=== PATIENT | female | born 1990 | race Caucasian/White ===

== ENCOUNTER 2020-02-23 09:49 | Emergency (ER) | payer MEDICARE, MEDICAID, SELFPAY ==
--- NOTE | ~2020-02-23 | XR_ITS ---
EXAMINATION: XR chest 2V DATE: 02/23/2020 10:50 INDICATION: Shortness of breath. Cough. TECHNIQUE: Frontal and lateral views of the chest were obtained. COMPARISON: Chest single view 11/25/2019, chest 2 views 10/10/2014 FINDINGS: The chest demonstrates clear lungs without pneumonia, pleural effusion, or pneumothorax. Th e heart size is normal. Again seen is a chronic 6 mm radiopaque foreign body in right posterior chest wall. IMPRESSION: 1. No acute cardiopulmonary disease. Reviewed, dictated and finalized at location A.
[2020-02-23 10:00] VITALS: BP 135/109; PULSE 83; RESP 18; TEMP 36.8; O2SAT 100
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
--- NOTE | 2020-02-23 10:13 | ECG_ITS ---
Measurements Intervals [place] Rate: 65 P: 39 SD: 132 QRS: 16 QRSD: 85 T: 13 QT: 423 QTc: 443 Interpretive Statements SINUS RHYTHM WITH SINUS ARRHYTHMIA BASELINE WANDER- III NORMAL ECG Electronically Signed On 02-23-2020 11:00:25 CDT by Deonte Gilman D.O.
[2020-02-23 10:29] LABS: Basophils Absolute Auto 0.1 K/mm3 (0.0-0.1); Basophils Percent Auto 0.5 % (0.2-1.2); Eosinophils Absolute Auto 0.1 K/mm3 (0-0.3); Eosinophils Percent Auto 0.7 % (0-4.4); Hemoglobin 13.8 g/dL (12.0-15.0); Immature Granulocyte Absolute 0.03 K/mm3 (0.00-0.031); Immature Granulocyte Percent A 0.3 % (0-0.5); Lymphocytes Absolute Auto 1.97 K/mm3 (0.9-3.2); Lymphocytes Percent Auto 21.6 % (18.3-44.2); Mean Corpuscular HGB Conc 33.7 g/dl (32-36); Mean Corpuscular Hemoglobin 29.8 pg (26-34); Mean Corpuscular Volume 88.6 fl (80-100); Mean Platelet Volume 10.5 fl (7.4-10.4); Monocytes Absolute Auto 0.5 K/mm3 (0.1-0.6); Monocytes Percent Auto 5.4 % (2.6-8.5); Neutrophils Absolute Auto 6.5 K/mm3 (1.3-6.7); Neutrophils Percent Auto 71.5 % (45.5-73.1); Platelet Count Result 298 k/mm3 (150-375); Red Blood Count 4.63 M/mm3 (4.2-5.4); Red Cell Distribution Width 15.9 % (11.5-14.5); White Blood Count 9.1 K/mm3 (4.5-10.0)
[2020-02-23 10:32] LABS: Add Urine Microscopic? YES; Appearance Urine Clear (Clear); Bacteria Urine Trace /hpf; Bilirubin Urine Negative (Negative); Blood Urine Negative (Negative); Color Urine Yellow (Yellow); Glucose Urine UA Negative (Negative); Ketones Urine 2+ mg/dL (Negative); Leukocyte Esterase Ur Negative LEU/UL (Negative); Mucus Urine Few /lpf; Nitrate Urine Negative (Negative); Protein Urine 1+ mg/dL (Negative); Specific Grav Ur 1.021 (1.001-1.035); Squamous Epithelial Cell Urine Moderate /hpf (Few); Urobilinogen Urine Negative mg/dL (<2.0)
[2020-02-23 10:39] LABS: Lithium 1.4 mmol/L (0.6-1.2)
[2020-02-23 10:39] LABS: Ethanol < 10 mg/dL (<10)
[2020-02-23 10:40] LABS: Alanine Aminotransferase 24 U/L (4-35); Albumin Level 4.7 g/dL (3.5-5.1); Alkaline Phosphatase 82 U/L (38-126); Aspartate Amino Transferase 45 U/L (14-36); Bilirubin,Total 0.9 mg/dL (0.2-1.3); Blood Urea Nitrogen 10 mg/dL (7-17); Carbon Dioxide 20 mmol/L (22-30); Chloride 105 mmol/L (98-107); Estimated CRCL calculation 90 ml/min; Estimated Glomerular Filt Rate > 60; Glucose 73 mg/dL (65-105); Potassium 3.1 mmol/L (3.4-5.0); Sodium 141 mmol/L (137-145)
[2020-02-23 10:45] LABS: Barbiturate Screen Urine Negative (Negative); Benzodiazepines Screen Urine Positive (Negative)
[2020-02-23 10:46] LABS: Cannabinoid Screen Urine Positive (Negative); Cocaine Screen Urine Positive (Negative); Methadone Screen Urine Negative (Negative); Opiate Screen Urine Negative (Negative); Phencyclidine Screen Urine Negative (Negative)
[2020-02-23 10:47] LABS: Amphetamine Screen Urine Positive (Negative)
[2020-02-23] MEDS: SODIUM CHLORIDE 0.9% IV 1,000 ML 999 ML IV CONT ×2 (11:07)
--- NOTE | 2020-02-23 12:45 | PC.NURSE ---
Awaiting crisis to evaluate. Pt sleeping. Sitter at bedside.
--- NOTE | 2020-02-23 13:06 | PC.NURSE ---
Crisis here to evaluate.
[2020-02-23] MEDS: POTASSIUM CHLORIDE 20 MEQ TABLET PO (13:31)
[2020-02-23 13:57] LABS: Lithium < 0.2 mmol/L (0.6-1.2)
[2020-02-23 14:11] VITALS: BP 101/67; PULSE 79; RESP 16; O2SAT 100
--- NOTE | 2020-02-23 14:24 | PC.NURSE ---
Chart faxed to [facility].
--- NOTE | 2020-02-23 14:28 | PC.NURSE ---
Chart faxed to the [place].
--- NOTE | 2020-02-23 14:33 | PC.NURSE ---
Chart faxed to [facility] in [place].
--- NOTE | 2020-02-23 15:47 | PC.NURSE ---
Spoke with the [facility], they will submit her info to the doctor.
--- NOTE | 2020-02-23 15:48 | PC.NURSE ---
[facility]untary form [facility].
== END 2020-02-23 17:32 ==
PROVIDERS: Emergency Provider General Practice
DX: R45.851 Suicidal ideations (principal); E87.6 Hypokalemia; R78.89 Finding of other specified substances, not normally found in blood; F15.10 Other stimulant abuse, uncomplicated; F14.10 Cocaine abuse, uncomplicated; F12.10 Cannabis abuse, uncomplicated; F41.9 Anxiety disorder, unspecified; E78.5 Hyperlipidemia, unspecified; F31.9 Bipolar disorder, unspecified
CPT/HCPCS: 36415; 71046; 80053; 80178; 80307; 81001; 81025; 84443; 85025; 87804; 93005; 96360; 99285; A9270; J7030

== ENCOUNTER 2020-11-24 12:43 | Outpatient (CLI) | payer MEDICARE, MEDICAID, SELFPAY ==
--- NOTE | 2020-11-24 15:00 | NEURO_ITS ---
IMPRESSION: # Complains of pain in hands. # Significant bilateral sensory Carpal Tunnel Syndrome. # No ulnar neuropathy. # Normal needle/EMG exam. Nerve Conduction Studies Anti Sensory Summary Table Stim Site NR Peak (ms) P-T Amp (?V) Site1 Site2 Delta-P (ms) Dist (cm) Cristian (m/s) Left Median Anti Sensory (2-3nd Digit) Wrist 6.4 12.7 Wrist 2-3nd Digit 6.4 14.0 22 Wrist 5.6 10.5 Wrist 2-3nd Digit 6.4 14.0 22 Right Median Anti Sensory (2-3nd Digit) Wrist 7.3 22.1 Wrist 2-3nd Digit 7.3 14.0 19 Wrist 7.6 42.9 Wrist 2-3nd Digit 7.3 14.0 19 Left Radial Anti Sensory (Base 1st Digit) Wrist 1.6 17.2 Wrist Base 1st Digit 1.6 0.0 Right Radial Anti Sensory (Base 1st Digit) Wrist 2.0 24.5 Wrist Base 1st Digit 2.0 0.0 Left Ulnar Anti Sensory (5th Digit) Wrist 2.3 67.8 Wrist 5th Digit 2.3 14.0 61 Right Ulnar Anti Sensory (5th Digit) Wrist 2.0 60.0 Wrist 5th Digit 2.0 14.0 70 Motor Summary Table Stim Site NR Onset (ms) O-P Amp (mV) Site1 Site2 Delta-0 (ms) Dist (cm) Cristian (m/s) Left Median Motor (Abd Poll Brev) Wrist 3.6 0.9 Elbow Wrist 4.4 26.0 59 Elbow 8.0 3.4 Right Median Motor (Abd Poll Brev) Wrist 2.7 4.2 Elbow Wrist 5.0 28.0 56 Elbow 7.7 3.6 Left Ulnar Motor (Abd Dig Minimi) Wrist 1.9 6.8 A Elbow Wrist 4.7 28.0 60 A Elbow 6.6 8.0 Right Ulnar Motor (Abd Dig Minimi) Wrist 1.6 3.9 A Elbow Wrist 4.7 26.0 55 A Elbow 6.3 4.8 F Wave Studies NR F-Lat (ms) L-R F-Lat (ms) Left Median (Mrkrs) (Abd Poll Brev) 32.34 1.05 Right Median (Mrkrs) (Abd Poll Brev) 33.39 1.05 Left Ulnar (Mrkrs) (Abd Dig Min) 24.34 1.05 Right Ulnar (Mrkrs) (Abd Dig Min) 25.39 1.05 EMG Side Muscle Nerve Root Ins Act Fibs Amp Dur Recrt Comment Right 1stDorInt Ulnar C8-T1 Nml Nml Nml Nml Nml Right Ext Indicis Radial (Post Int) C7-8 Nml Nml Nml Nml Nml Right Ext Digitorum Radial (Post Int) C7-8 Nml Nml Nml Nml Nml Right BrachioRad Radial C5-6 Nml Nml Nml Nml Nml Right PronatorTeres Median C6-7 Nml Nml Nml Nml Nml Right Abd Poll Brev Median C8-T1 Nml Nml Nml Nml Nml Left 1stDorInt Ulnar C8-T1 Nml Nml Nml Nml Nml Left Ext Indicis Radial (Post Int) C7-8 Nml Nml Nml Nml Nml Left Ext Digitorum Radial (Post Int) C7-8 Nml Nml Nml Nml Nml Left BrachioRad Radial C5-6 Nml Nml Nml Nml Nml Left PronatorTeres Median C6-7 Nml Nml Nml Nml Nml Left Abd Poll Brev Median C8-T1 Nml Nml Nml Nml Nml MTDD
== END 2020-11-24 12:44 | disposition home or self-care (01) ==
LOC: ANHNEURO 12:45
PROVIDERS: PCP Physician Assistant; Visit Provider Physician Assistant
DX: M67.839 Other specified disorders of synovium and tendon, unspecified wrist (principal); G56.03 Carpal tunnel syndrome, bilateral upper limbs
CPT/HCPCS: 95886; 95911

== ENCOUNTER 2021-01-28 12:55 | Emergency (ER) | payer MEDICARE, MEDICAID, SELFPAY ==
[2021-01-28 13:05] VITALS: BP 117/93; PULSE 60; RESP 22; TEMP 36.5; O2SAT 94
--- NOTE | 2021-01-28 13:34 | PC.NURSE ---
Pt restless, scratching at skin. Out in [place] frequently to talk on phone.
--- NOTE | 2021-01-28 13:35 | PC.NURSE ---
Pt found in cabinets in room. Has open packets of ky jelly out.
--- NOTE | 2021-01-28 14:07 | ED.GENADULT ---
HPI - General Adult General Chief complaint: Skin/Abscess/Foreign Body <Aleksey Heath PA-C - Last Filed: 01/28/21 14:12> Stated complaint: bumps all over/pain <Aleksey Heath PA-C - Last Filed: 01/28/21 14:12> Time Seen by Provider: 01/28/21 13:27 <Aleksey Heath PA-C - Last Filed: 01/28/21 14:12> Source: patient <Aleksey Heath PA-C - Last Filed: 01/28/21 14:12> Mode of arrival: ambulatory <Aleksey Heath PA-C - Last Filed: 01/28/21 14:12> Limitations: no limitations <Aleksey Heath PA-C - Last Filed: 01/28/21 14:12> History of Present Illness HPI narrative: Patient is a 30-year-old female who uses ice noting that she has a rash to her body patient notes that been there several days notes aching and irritation patient denies any fever chills nausea vomiting no other wounds or complaints patient is very anxious on arrival notes that she has been using methamphetamine <Aleksey Heath PA-C - Last Filed: 01/28/21 14:12> Related Data Home medications: Home Medications Medication Instructions Recorded Confirmed buprenorphine-naloxone film 02/23/20 bupropion HCl PO 02/23/20 fluoxetine mg 02/23/20 <Aleksey Heath PA-C - Last Filed: 01/28/21 14:12> Allergies/adverse reactions: Allergies Allergy/AdvReac Type Severity Reaction Status Date / Time risperidone Allergy Unknown Swelling Verified 01/28/21 13:11 of Lip/Tongue/Throat ANTIPSYCHOTICS Allergy Unknown Siezure Uncoded 02/23/20 10:08 <Aleksey Heath PA-C - Last Filed: 01/28/21 14:12> Review of Systems Review of Systems: All systems reviewed & are unremarkable except as noted in HPI and below <Aleksey Heath PA-C - Last Filed: 01/28/21 14:12> PMFSH Past Medical History Medical History: Medical History (Updated 01/28/21 @ 14:11 by Aleksey Heath PA-C) Anxiety Bipolar disorder Depression HLD (hyperlipidemia) <Aleksey Heath PA-C - Last Filed: 01/28/21 14:12> Surgical History Surgical History: Surgical History Hx of section <Aleksey Heath PA-C - Last Filed: 01/28/21 14:12> Social History Social History: Social History (Updated 01/28/21 @ 14:08 by Aleksey Heath PA-C) Smoking status: Smoker, status unknown Substance use type: amphetamines Gender identity (if verbalized by the patient): Female <Aleksey Heath PA-C - Last Filed: 01/28/21 14:12> Exam Narrative: Exam Narrative: GENERAL: Well-appearing, well-nourished, and in no acute distress. HEAD: Normocephalic, atraumatic. EYES: PERRLA and EOMI. ENT: Nares clear, no rhinorrhea or epistaxis. Mucous membranes moist. CHEST: Clear to auscultation. No respiratory distress. No wheezes rales or rhonchi HEART: Regular rate and rhythm. No murmur heard. Normal peripheral pulses. EXTREMITIES: Normal range of motion. No edema. SKIN: Warm, dry, folliculitis of the buttocks NEURO: No focal deficits. Alert and oriented x3. PSYCH: Patient acutely anxious <Aleksey Heath PA-C - Last Filed: 01/28/21 14:12> Course Course Emergency Course: Patient presented with folliculitis no distress will be discharged home with instructions for follow-up <Aleksey Heath PA-C - Last Filed: 01/28/21 14:12> Vital Signs Vital signs: Vital Signs Temperature 97.7 F 01/28/21 13:05 Pulse Rate 60 01/28/21 13:05 Respiratory Rate 22 H 01/28/21 13:05 Blood Pressure 117/93 H 01/28/21 13:05 Pulse Oximetry 94 01/28/21 13:05 Temperature 97.7 F 01/28/21 13:05 Pulse Rate 60 01/28/21 13:05 Respiratory Rate 22 H 01/28/21 13:05 Blood Pressure 117/93 H 01/28/21 13:05 Pulse Oximetry 94 01/28/21 13:05 <VANESSA Mondragon Last Filed: 01/28/21 14:12> Vital Signs Temperature 97.7 F 01/28/21 13:05 Pulse Rate 60 01/28/21 13:05 Respiratory Rate 22 H 01/28/21 13:05 Blood
--- NOTE | 2021-01-28 14:13 | PC.NURSE ---
Pt noted to be walking out of the department quickly. Pt talking to herself, rambling speech, unable to understand or redirect behavior. Mother had attempted to check in as a visitor, and wasn't allowed to visit as has a pending covid test.
== END 2021-01-28 14:26 | disposition home or self-care (01) ==
PROVIDERS: Emergency Provider General Practice; PCP Physician Assistant
DX: L73.9 Follicular disorder, unspecified (principal); E78.5 Hyperlipidemia, unspecified; F41.9 Anxiety disorder, unspecified; F31.9 Bipolar disorder, unspecified
CPT/HCPCS: 99283

== ENCOUNTER 2021-03-04 03:50 | Emergency (ER) | payer MEDICARE, MEDICAID, SELFPAY ==
[2021-03-04 03:55] VITALS: BP 119/78; PULSE 77; RESP 16; TEMP 36.6; O2SAT 100
[2021-03-04 04:31] LABS: Basophils Percent Auto 0.4 % (0.2-1.2); Eosinophils Percent Auto 0.5 % (0-4.4); Hematocrit 47.6 % (37.0-47.0); Hemoglobin 15.8 g/dL (12.0-15.0); Immature Granulocyte Absolute 0.03 K/mm3 (0.00-0.031); Immature Granulocyte Percent A 0.4 % (0-0.5); Mean Corpuscular HGB Conc 33.2 g/dl (32-36); Mean Corpuscular Hemoglobin 28.9 pg (26-34); Mean Platelet Volume 10.8 fl (7.4-10.4); Monocytes Absolute Auto 0.5 K/mm3 (0.1-0.6); Monocytes Percent Auto 6.3 % (2.6-8.5); Neutrophils Percent Auto 62.4 % (45.5-73.1); Platelet Count Result 240 k/mm3 (150-375); Red Blood Count 5.47 M/mm3 (4.2-5.4); Red Cell Distribution Width 14.6 % (11.5-14.5)
[2021-03-04 04:43] LABS: Add Urine Microscopic? YES; Appearance Urine Cloudy (Clear); Bacteria Urine Trace /hpf; Bilirubin Urine Negative (Negative); Blood Urine Negative (Negative); Color Urine Yellow (Yellow); Glucose Urine UA Negative (Negative); Ketones Urine Negative (Negative); Leukocyte Esterase Ur Negative LEU/UL (Negative); Nitrate Urine Negative (Negative); Protein Urine 1+ mg/dL (Negative); Specific Grav Ur 1.015 (1.001-1.035); Squamous Epithelial Cell Urine Many /hpf (Few); Urobilinogen Urine Negative mg/dL (<2.0); WBC Urine 0-3 /hpf
[2021-03-04 04:47] LABS: Alanine Aminotransferase 22 U/L (4-35); Albumin Level 5.1 g/dL (3.5-5.1); Alkaline Phosphatase 70 U/L (38-126); Anion Gap 11 mmol/L (8-16); Aspartate Amino Transferase 28 U/L (14-36); Bilirubin,Total 0.3 mg/dL (0.2-1.3); Blood Urea Nitrogen 12 mg/dL (7-17); Calcium 9.4 mg/dL (8.4-10.2); Carbon Dioxide 26 mmol/L (22-30); Chloride 105 mmol/L (98-107); Estimated CRCL calculation 82 ml/min; Estimated Glomerular Filt Rate > 60; Glucose 81 mg/dL (65-105); Potassium 3.7 mmol/L (3.4-5.0); Sodium 142 mmol/L (137-145)
[2021-03-04 04:49] LABS: Acetaminophen < 10 ug/mL (10-30); Ethanol < 10 mg/dL (<10); Salicylate < 1.0 mg/dL (2-20)
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
[2021-03-04 05:39] LABS: Barbiturate Screen Urine Negative (Negative); Benzodiazepines Screen Urine Negative (Negative); Cannabinoid Screen Urine Positive (Negative); Cocaine Screen Urine Positive (Negative); Methadone Screen Urine Negative (Negative); Opiate Screen Urine Negative (Negative); Phencyclidine Screen Urine Negative (Negative)
[2021-03-04 06:45] LABS: Amphetamine Screen Urine Positive (Negative)
--- NOTE | 2021-03-04 07:08 | PC.NURSE ---
report to Sal HARRELL
--- NOTE | 2021-03-04 08:40 | PC.NURSE ---
Pt. asked if they are still having suicidal thoughts and patient stated When did I ever say that? Pt. denies any suicidal or homicidal ideations at this time.
[2021-03-04 10:28] VITALS: BP 117/76; PULSE 73; RESP 14; O2SAT 100
--- NOTE | 2021-03-04 10:29 | PC.NURSE ---
Pt. in the room agitated, stating she will tricia the whole hospital that I will call 911 to go to a real [facility] Do you know where God is? I would like to speak with him
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
[2021-03-04 13:32] VITALS: BP 111/80; PULSE 62; RESP 12; O2SAT 98
--- NOTE | 2021-03-04 14:22 | PC.NURSE ---
Pt stated I am not taking that fucking packet upon discharge.
--- NOTE | 2021-03-04 14:45 | PC.NURSE ---
Pt. arguing with someone on the phone becoming agitated. Pt. advised to stop.
[2021-03-04 19:39] LABS: SARS-CoV-2 RNA PCR Negative
== END 2021-03-04 14:45 | disposition home or self-care (01) ==
PROVIDERS: Emergency Medicine; Emergency Provider General Practice; PCP Physician Assistant
DX: F15.10 Other stimulant abuse, uncomplicated (principal); F14.10 Cocaine abuse, uncomplicated; F12.10 Cannabis abuse, uncomplicated; F41.9 Anxiety disorder, unspecified; F31.9 Bipolar disorder, unspecified; E78.5 Hyperlipidemia, unspecified; F20.9 Schizophrenia, unspecified; Z20.822 Contact with and (suspected) exposure to COVID-19
CPT/HCPCS: 36415; 80053; 80307; 81001; 81025; 84443; 85025; 99284; C9803; U0003; U0005

== ENCOUNTER 2021-10-04 07:53 | Emergency (ER) | payer MEDICARE, MEDICAID, SELFPAY ==
[2021-10-04 07:54] VITALS: BP 151/107; PULSE 84; RESP 14; TEMP 37; O2SAT 100
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
[2021-10-04 09:09] VITALS: BP 148/99; PULSE 86; RESP 14; TEMP 36.5; O2SAT 100
== END 2021-10-04 09:10 | disposition home or self-care (01) ==
PROVIDERS: Emergency Provider Emergency Medicine; PCP Physician Assistant
DX: Z04.89 Encounter for examination and observation for other specified reasons (principal); F41.9 Anxiety disorder, unspecified; F31.9 Bipolar disorder, unspecified; E78.5 Hyperlipidemia, unspecified; Y04.2XXA Assault by strike against or bumped into by another person, initial encounter
CPT/HCPCS: 99281

== ENCOUNTER 2021-11-26 00:35 | Emergency (ER) | payer MEDICARE, MEDICAID, SELFPAY ==
--- NOTE | 2021-11-26 00:48 | ECG_ITS ---
Measurements Intervals [place] Rate: 99 P: 55 UT: 138 QRS: -15 QRSD: 86 T: 30 QT: 356 QTc: 458 Interpretive Statements SINUS RHYTHM POSSIBLE LEFT ATRIAL ENLARGEMENT BASELINE ARTIFACT- II, III, AVF BORDERLINE ECG Electronically Signed On 11-26-2021 6:31:33 E [employer] by Deonte Gilman D.O.
[2021-11-26 00:52] VITALS: BP 131/95; PULSE 90; RESP 20; O2SAT 97
[2021-11-26 01:07] LABS: Basophils Absolute Auto 0.1 K/mm3 (0.0-0.1); Basophils Percent Auto 0.6 % (0.2-1.2); Eosinophils Absolute Auto 0.1 K/mm3 (0-0.3); Eosinophils Percent Auto 0.6 % (0-4.4); Hemoglobin 14.3 g/dL (12.0-15.0); Immature Granulocyte Absolute 0.04 K/mm3 (0.00-0.031); Immature Granulocyte Percent A 0.4 % (0-0.5); Lymphocytes Absolute Auto 2.27 K/mm3 (0.9-3.2); Lymphocytes Percent Auto 20.9 % (18.3-44.2); Mean Corpuscular Hemoglobin 30.3 pg (26-34); Mean Platelet Volume 9.2 fl (7.4-10.4); Monocytes Absolute Auto 0.6 K/mm3 (0.1-0.6); Monocytes Percent Auto 5.4 % (2.6-8.5); Neutrophils Absolute Auto 7.8 K/mm3 (1.3-6.7); Neutrophils Percent Auto 72.1 % (45.5-73.1); Platelet Count Result 329 k/mm3 (150-375); Red Blood Count 4.72 M/mm3 (4.2-5.4); Red Cell Distribution Width 14.5 % (11.5-14.5); White Blood Count 10.9 K/mm3 (4.5-10.0)
[2021-11-26 01:23] LABS: Acetaminophen < 10 ug/mL (10-30); Ethanol < 10 mg/dL (<10); Salicylate < 1.0 mg/dL (2-20)
[2021-11-26 01:24] LABS: Alanine Aminotransferase 28 U/L (4-35); Albumin Level 5.1 g/dL (3.5-5.1); Alkaline Phosphatase 79 U/L (38-126); Anion Gap 13 mmol/L (8-16); Aspartate Amino Transferase 31 U/L (14-36); Bilirubin,Total 0.6 mg/dL (0.2-1.3); Blood Urea Nitrogen 16 mg/dL (7-17); Calcium 9.8 mg/dL (8.4-10.2); Carbon Dioxide 20 mmol/L (22-30); Chloride 105 mmol/L (98-107); Estimated Glomerular Filt Rate > 60; Glucose 98 mg/dL (65-110); Potassium 3.5 mmol/L (3.4-5.0); Sodium 138 mmol/L (137-145)
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
[2021-11-26 01:49] LABS: SARS-CoV-2 RNA PCR Negative
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
[2021-11-26] MEDS: HALOPERIDOL LACTATE 5 MG/ML VIAL IM (02:40)
[2021-11-26] MEDS: diphenhydrAMINE HCl INJ 50 MG/ML VIAL IM (02:40)
[2021-11-26] MEDS: LORazepam INJ (*CRX) 2 MG/ML VIAL IM ×2 (02:41→03:24)
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
[2021-11-26 02:52] LABS: Add Urine Microscopic? YES; Appearance Urine Cloudy (Clear); Bacteria Urine Trace /hpf; Bilirubin Urine Negative (Negative); Blood Urine Negative (Negative); Color Urine Amber (Yellow); Glucose Urine UA Negative (Negative); Ketones Urine 1+ mg/dL (Negative); Leukocyte Esterase Ur 1+ LEU/UL (Negative); Mucus Urine Rare /lpf; Nitrate Urine Negative (Negative); Protein Urine 1+ mg/dL (Negative); RBC Urine 21-50 /hpf (0-2); Specific Grav Ur 1.029 (1.001-1.035); Squamous Epithelial Cell Urine Many /hpf (Few); Urobilinogen Urine Negative mg/dL (<2.0)
[2021-11-26 03:00] LABS: Barbiturate Screen Urine Negative (Negative); Benzodiazepines Screen Urine Negative (Negative)
[2021-11-26 03:02] LABS: Cannabinoid Screen Urine Positive (Negative); Cocaine Screen Urine Positive (Negative); Methadone Screen Urine Negative (Negative); Opiate Screen Urine Negative (Negative); Phencyclidine Screen Urine Negative (Negative)
--- NOTE | 2021-11-26 03:20 | PC.NURSE ---
pt attempting to finger paint with stool from bedside commode. pt continuing to say you're trying to kill me. get the fuck out of here. I'll have you on site .
[2021-11-26 03:26] LABS: Amphetamine Screen Urine Positive (Negative)
--- NOTE | 2021-11-26 03:47 | PC.NURSE ---
Pt resting on stretcher, lights dimmed. Sitter placed at bedside for elopement risk.
[2021-11-26 03:51] VITALS: PULSE 85; RESP 16; O2SAT 97
[2021-11-26 03:55] LABS: Pregnancy On Board Control Positive; Urine Pregnancy Test Negative
--- NOTE | 2021-11-26 07:30 | PC.NURSE ---
Ginger soto. Sleeping. Sitter at bedside.
--- NOTE | 2021-11-26 09:19 | PC.NURSE ---
Continues to sleep. Sitter at bedside.
--- NOTE | 2021-11-26 10:38 | PC.NURSE ---
Awake and cooperative with staff. Denies SI or HI at present.
[2021-11-26 10:44] VITALS: BP 106/71; PULSE 88; RESP 18; O2SAT 98
--- NOTE | 2021-11-26 14:15 | PC.NURSE ---
Crisis here to evaluate.
[2021-11-26 15:03] VITALS: TEMP 36.9
== END 2021-11-26 15:28 | disposition home or self-care (01) ==
PROVIDERS: Emergency Medicine; Emergency Provider General Practice; PCP Physician Assistant
DX: F15.10 Other stimulant abuse, uncomplicated (principal); F11.11 Opioid abuse, in remission; F12.10 Cannabis abuse, uncomplicated; F29 Unspecified psychosis not due to a substance or known physiological condition; Z20.822 Contact with and (suspected) exposure to COVID-19; F41.9 Anxiety disorder, unspecified; F31.9 Bipolar disorder, unspecified; E78.5 Hyperlipidemia, unspecified; R94.31 Abnormal electrocardiogram [ECG] [EKG]
CPT/HCPCS: 36415; 80053; 80307; 81001; 81025; 84443; 85025; 93005; 96372; 99284; C9803; J1200; J1630; J2060; U0003; U0005

== ENCOUNTER 2021-11-30 00:43 | Emergency (ER) | payer MEDICARE, MEDICAID, SELFPAY ==
[2021-11-30 00:50] VITALS: BP 113/94; PULSE 84; RESP 18; TEMP 36.6; O2SAT 98
--- NOTE | 2021-11-30 00:55 | PC.NURSE ---
This RN attempting to register other patients. Pt walking up to visitors and staff, interrupting, asks do you have a ventilator here? I bet I have COVID. I think I'm just going to call an ambulance and go to [place] or [facility]. The wait here is fucking ridiculous . Pt reminded that she has been in the department for approx 7 minutes. Pt asked to stop using profanity and to wear her mask, and to have a seat in the far area of the waiting room. Pt outside to smoke, returns and says obviously I'm too sick to smoke .
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
--- NOTE | 2021-11-30 01:22 | PC.NURSE ---
per pt request, facility was asked to call PD to escort pt out of ER
--- NOTE | 2021-11-30 01:25 | ED.GENADULT ---
HPI - General Adult General Chief complaint: Unspecified Stated complaint: diarrhea, fever, nausea, poss Time Seen by Provider: 11/30/21 01:09 History of Present Illness HPI narrative: Patient 31-year-old female who presents the emergency department with chief complaint of have COVID or the flu or I think I am . The patient is well-known to our emergency department and was seen here several days ago after she was having psychosis after using stimulants. Patient is uncooperative but denying suicidal or homicidal ideation Related Data Home Medications Medication Instructions Recorded Confirmed buprenorphine-naloxone film 02/23/20 bupropion HCl PO 02/23/20 fluoxetine mg 02/23/20 Allergies Allergy/AdvReac Type Severity Reaction Status Date / Time risperidone Allergy Unknown Swelling Verified 11/30/21 01:00 of Lip/Tongue/Throat ANTIPSYCHOTICS Allergy Unknown Siezure Uncoded 11/30/21 01:00 Review of Systems Review of Systems: A 10 system review of systems was completed on the patient and is negative except for what is stated in the HPI. Nursing and ancillary documentation was reviewed. PMFSH Past Medical History Medical History (Updated 11/30/21 @ 02:36 by Fred Berg MD) Anxiety Bipolar disorder Depression HLD (hyperlipidemia) Surgical History Surgical History Hx of section Social History Social History Smoking status: Smoker, status unknown Substance use type: marijuana, crack/cocaine and amphetamines Gender identity (if verbalized by the patient): Female Exam Narrative: GENERAL: Well-appearing, well-nourished, and in no acute distress. HEAD: Normocephalic, atraumatic. EYES: PERRLA and EOMI. ENT: Nares clear, no rhinorrhea or epistaxis. Mucous membranes moist. NECK: Supple. CHEST: Clear to auscultation. No respiratory distress. HEART: Regular rate and rhythm. No murmur heard. Normal peripheral pulses. ABDOMEN: Soft, nontender, nondistended, normal active bowel sounds. EXTREMITIES: Normal range of motion. No edema. SKIN: Warm, dry, no rash. NEURO: No focal deficits. Alert and oriented x3. PSYCH: Anxious fidgeting, not suicidal not homicidal Course Course Emergency Course: Patient is showing no signs of hemodynamic compromise patient chose to refuse medical screening exam Patient is fit for confinement Vital Signs Vital signs: Vital Signs Temperature 36.6 C 11/30/21 00:50 Pulse Rate 84 11/30/21 00:50 Respiratory Rate 18 11/30/21 00:50 Blood Pressure 113/94 H 11/30/21 00:50 Pulse Oximetry 98 11/30/21 00:50 Temperature 36.6 C 11/30/21 00:50 Pulse Rate 84 11/30/21 00:50 Respiratory Rate 18 11/30/21 00:50 Blood Pressure 113/94 H 11/30/21 00:50 Pulse Oximetry 98 11/30/21 00:50 Medical Decision Making Vital Signs Vital Signs: Vital Signs Temperature 36.6 C 11/30/21 00:50 Pulse Rate 84 11/30/21 00:50 Respiratory Rate 18 11/30/21 00:50 Blood Pressure 113/94 H 11/30/21 00:50 Pulse Oximetry 98 11/30/21 00:50 Temperature 36.6 C 11/30/21 00:50 Pulse Rate 84 11/30/21 00:50 Respiratory Rate 18 11/30/21 00:50 Blood Pressure 113/94 H 11/30/21 00:50 Pulse Oximetry 98 11/30/21 00:50 Discharge Plan Discharge Clinical Impression: Polysubstance abuse Patient Disposition: Left Against Medical Advice Condition: Stable Instructions: Polysubstance Abuse (ED) Additional Instructions: Patient is fit for confinement Denies homicidal or suicidal ideation Prescriptions: No Action Zyrtec 10 mg capsule 10 mg PO DAILY Qty: 10 RF: 0 methylprednisolone [Medrol (Chong)] 4 mg tablets,dose pack See Rx Instructions .ROUTE .COMPLEX Qty: 21 RF: 0 fluoxetine 10 mg tablet RF: 0 bupropion HCl 100 mg tablet PO RF: 0
== END 2021-11-30 01:49 | disposition left against medical advice (07) ==
LOC: ANHED 01:29
PROVIDERS: Emergency Provider Emergency Medicine
DX: F19.10 Other psychoactive substance abuse, uncomplicated (principal); F41.9 Anxiety disorder, unspecified; F31.9 Bipolar disorder, unspecified
CPT/HCPCS: 99281

== ENCOUNTER 2023-01-28 15:31 | Emergency (ER) | payer MEDICARE, MEDICAID, SELFPAY ==
[2023-01-28 15:45] VITALS: BP 121/71; PULSE 70; RESP 16; TEMP 37.3; O2SAT 99
--- NOTE | 2023-01-28 15:54 | ED.BACK ---
HPI - Back Pain/Injury General Chief Complaint: Back Pain/Injury Stated Complaint: back pain Time Seen by Provider: 01/28/23 15:55 Source: patient Mode of arrival: ambulatory Limitations: no limitations History of Present Illness HPI Narrative: 32-year-old female presents with complaint of right-sided low back pain that started last night. 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 Has taken 2 doses of 800 mg ibuprofen with no relief of pain. Patient is ambulatory with steady gait. No complaints of weakness or numbness to lower extremities. No loss of bowel or bladder. All systems reviewed and negative except as noted above. Related Data Home Medications Medication Instructions Recorded Confirmed bupropion HCl 100 mg tablet PO 02/23/20 fluoxetine 10 mg tablet mg 02/23/20 Allergies Allergy/AdvReac Type Severity Reaction Status Date / Time risperidone Allergy Unknown Swelling Verified 01/28/23 15:35 of Lip/Tongue/Throat ANTIPSYCHOTICS Allergy Unknown Siezure Uncoded 01/28/23 15:35 Review of Systems Review of Systems: CONSTITUTIONAL: Denies fever, chills, or sweats. EYES: Denies visual changes, redness, or discharge. ENT: Denies rhinorrhea, congestion, sore throat, or otalgia. CARDIOVASCULAR: Denies chest pain, palpitations, or edema. RESPIRATORY: Denies cough or dyspnea. GASTROINTESTINAL: Denies abdominal pain, nausea, vomiting, or diarrhea. GENITOURINARY: Denies dysuria or hematuria. SKIN: Denies rash or itching. MUSCULOSKELETAL: Reports right-sided low back pain. Denies joint pain, or myalgia. NEUROLOGIC: Denies headache, numbness, or weakness. PSYCHIATRIC: Denies anxiety or depression. All other systems reviewed are negative, except as documented in HPI. [facility] Past Medical History Medical History (Updated 01/28/23 @ 16:03 by Smita Irene NP) Anxiety Bipolar disorder Depression HLD (hyperlipidemia) Surgical History Surgical History Hx of section Social History Social History Smoking status: Smoker, status unknown Substance use type: marijuana, crack/cocaine and amphetamines Gender identity (if verbalized by the patient): Female Comments At time of signature, agree with nursing past medical, surgical, social and family history. There is no relevant family history pertinent to the presenting complaint. Exam Narrative: GENERAL: This is a well-nourished, well-developed patient, in no apparent distress. HEAD: normocephalic, atraumatic. EYES: PERRL. Sclera clear/white. Vision is grossly intact. EARS: External ears normal NOSE: External nose normal NECK: Neck supple, non-tender without lymphadenopathy, masses or thyromegaly. CARDIOVASCULAR: Regular rate and rhythm without murmurs, gallops, or rubs. RESPIRATORY: Clear to auscultation. Breath sounds equal bilaterally. No wheezes, rales, or rhonchi. SKIN: warm, Dry, intact with no suspicious lesions or rash, good texture and turgor. NEURO: awake, alert, and oriented to person, place and time. There were no obvious focal neurologic abnormalities. EXTREMITIES: No joint tenderness, effusion, or edema noted. No calf tenderness. Negative Homans sign bilaterally. BACK: no midline tenderness. No deformity. Tender to right side low back over SI joint aspect. Lower extremity strength bilaterally 5/5. negative straight leg raise. Course Course Level of Care: Express Care Visit Vital Signs Vital signs: Vital Signs Temperature 37.3 C 01/28/23 15:45 Pulse Rate 70 01/28/23 15:45 Respiratory Rate 16 01/28/23 15:45 Blood Pressure 121/71 01/28/23 15:45 Pulse Oximetry 99 01/28/23 15:45 Oxygen Delivery Room Air 01/28/23 15:45 Temperature 37.3 C 01/28/23 16:01 Pulse Rate 70 01/28/23 16:01 Respir
[2023-01-28 16:01] VITALS: BP 121/71; PULSE 70; RESP 16; TEMP 37.3; O2SAT 99
== END 2023-01-28 16:05 | disposition home or self-care (01) ==
PROVIDERS: Emergency Provider Nurse Practitioner Family
DX: S39.012A Strain of muscle, fascia and tendon of lower back, initial encounter (principal); F41.9 Anxiety disorder, unspecified; F32.A Depression, unspecified; E78.5 Hyperlipidemia, unspecified; X50.0XXA Overexertion from strenuous movement or load, initial encounter
CPT/HCPCS: 99213; G0463

== ENCOUNTER 2023-12-09 16:13 | Emergency (ER) | payer MEDICARE, MEDICAID, SELFPAY ==
[2023-12-09 16:16] VITALS: BP 104/74; PULSE 87; RESP 18; TEMP 36.8; O2SAT 99
[2023-12-09 16:53] LABS: Appearance Urine Clear (Clear); Bacteria Urine None Seen /hpf; Bilirubin Urine Negative (Negative); Blood Urine 3+ (Negative); Color Urine Yellow (Yellow); Glucose Urine UA Negative (Negative); Ketones Urine Negative (Negative); Leukocyte Esterase Ur Negative LEU/UL (Negative); Nitrate Urine Negative (Negative); Non Pathogenic Casts 0-2; Protein Urine Negative (Negative); RBC Urine 21-50 /hpf (0-2); Specific Grav Ur 1.018 (1.001-1.035); Squamous Epithelial Cell Urine None seen /hpf (Few); Urobilinogen Urine 0.2 mg/dL (<2.0); WBC Urine 0-5 /hpf
[2023-12-09 16:55] LABS: Basophils Percent Auto 0.4 % (0.2-1.2); Eosinophils Absolute Auto 0.1 K/mm3 (0-0.3); Eosinophils Percent Auto 1.6 % (0-4.4); Hematocrit 39.5 % (37.0-47.0); Hemoglobin 12.9 g/dL (12.0-15.0); Immature Granulocyte Absolute 0.01 K/mm3 (0.00-0.031); Immature Granulocyte Percent A 0.2 % (0-0.5); Lymphocytes Percent Auto 31.3 % (18.3-44.2); Mean Corpuscular HGB Conc 32.7 g/dl (32-36); Mean Corpuscular Hemoglobin 28.4 pg (26-34); Mean Corpuscular Volume 86.8 fl (80-100); Mean Platelet Volume 10.6 fl (7.4-10.4); Monocytes Absolute Auto 0.4 K/mm3 (0.1-0.6); Monocytes Percent Auto 7.8 % (2.6-8.5); Neutrophils Absolute Auto 2.6 K/mm3 (1.3-6.7); Neutrophils Percent Auto 58.7 % (45.5-73.1); Platelet Count Result 218 k/mm3 (150-375); Red Blood Count 4.55 M/mm3 (4.2-5.4); Red Cell Distribution Width 14.6 % (11.5-14.5); White Blood Count 4.5 K/mm3 (4.5-10.0)
[2023-12-09 17:04] LABS: Add Urine Microscopic? YES
[2023-12-09 17:09] LABS: Alanine Aminotransferase 17 U/L (6-35); Albumin Level 3.8 g/dL (3.5-5.1); Alkaline Phosphatase 53 U/L (38-126); Anion Gap 7 mmol/L (8-16); Aspartate Amino Transferase 22 U/L (14-36); Bilirubin,Total 0.3 mg/dL (0.2-1.3); Blood Urea Nitrogen 8 mg/dL (7-17); Calcium 8.8 mg/dL (8.4-10.2); Carbon Dioxide 21 mmol/L (22-30); Chloride 109 mmol/L (98-107); Estimated CRCL calculation 92 ml/min; Estimated Glomerular Filt Rate > 60; Glucose 95 mg/dL (65-110); Sodium 137 mmol/L (137-145)
[2023-12-09 17:12] VITALS: BP 92/65; PULSE 65; RESP 18; O2SAT 97
[2023-12-09] MEDS: KETOROLAC 30 MG/ML VIAL (*BKC) IM (17:30)
--- NOTE | 2023-12-09 18:41 | ED.ABDPAIN ---
HPI - Abdominal Pain General Chief Complaint: Abdominal Pain Stated Complaint: extreme cramps X2 days Time Seen by Provider: 12/09/23 16:27 History of Present Illness HPI narrative: Patient presenting with painful menstrual cramps and heavy bleeding, she is on her period, her bleeding has already lessened over the last few hours. No other complaints. Takes Tylenol and ibuprofen for the cramps. Related Data Allergies Allergy/AdvReac Type Severity Reaction Status Date / Time risperidone Allergy Unknown Swelling Verified 12/09/23 16:14 of Lip/Tongue/Throat ANTIPSYCHOTICS Allergy Unknown Siezure Uncoded 12/09/23 16:14 Review of Systems Review of Systems: CONST: No fever. HEENT: No sore throat C/V: No chest pain RESP: No cough GI: Cramps : vaginal bleeding. M/S: No joint pain. SKIN: No rash. NEURO: [No headache or focal numbness or weakness] PSYCH: [No depression] PMFSH Past Medical History Medical History (Updated 12/09/23 @ 17:25 by Sarah Duncan MD) Anxiety Bipolar disorder Depression HLD (hyperlipidemia) Surgical History Surgical History Hx of section Social History Social History Smoking status: Smoker, status unknown Substance use type: marijuana, crack/cocaine and amphetamines Gender identity (if verbalized by the patient): Female Exam Narrative: EXAMINATION OF ORGAN SYSTEMS/BODY AREAS: Constitutional: Vital signs per nursing GENERAL:[No acute distress, non-toxic appearing.] HEAD: Normal with no signs of head trauma. EYES: EOMI, conjunctiva normal ENT: Hearing grossly intact LUNGS: Nonlabored breathing. HEART: [Regular rate and rhythm] ABD: [Soft], [nontender to palpation] : Scant blood, no active hemorrhage EXT: Normal range of motion SKIN: [No rashes or lesions.] NEURO: [Alert and oriented x 3. No gross focal sensory or strength deficits.] PSYCH: Normal affect Course Vital Signs Vital signs: Vital Signs Temperature 98.2 F 12/09/23 16:16 Pulse Rate 87 12/09/23 16:16 Respiratory Rate 18 12/09/23 16:16 Blood Pressure 104/74 12/09/23 16:16 Pulse Oximetry 99 12/09/23 16:16 Oxygen Delivery Room Air 12/09/23 16:16 Temperature 98.2 F 12/09/23 16:16 Pulse Rate 65 12/09/23 17:12 Respiratory Rate 18 12/09/23 17:12 Blood Pressure 92/65 L 12/09/23 17:12 Pulse Oximetry 97 12/09/23 17:12 Oxygen Delivery Room Air 12/09/23 16:16 MDM - Abdominal Pain MDM Narrative Medical decision making narrative: 33-year-old menstrual cramps and bleeding, she is well-appearing on exam, abdomen soft nontender, I did check which is negative, urine which does not show UTI, and her hematocrit and hemoglobin were within acceptable limits. She is not having any active hemorrhage on exam and I do feel she is stable for discharge at this time, she is feeling better after a shot of Toradol, she is given follow-up to OBGYN and return precautions in person and on paper. Lab Data 12/09/23 16:51 12/09/23 16:51 Labs: Lab Results 12/09/23 12/09/23 Range/Units 16:44 16:51 WBC 4.5 (4.5-10.0) K/mm3 RBC 4.55 (4.2-5.4) M/mm3 Hgb 12.9 (12.0-15.0) g/dL Hct 39.5 (37.0-47.0) % MCV 86.8 (80-100) fl MCH 28.4 (26-34) pg MCHC 32.7 (32-36) g/dl RDW 14.6 H (11.5-14.5) % Plt Count 218 (150-375) k/mm3 MPV 10.6 H (7.4-10.4) fl Immature Gran % (Auto) 0.2 (0-0.5) % Neut % (Auto) 58.7 (45.5-73.1) % Lymph % (Auto) 31.3 (18.3-44.2) % [place] % (Auto) 7.8 (2.6-8.5) % Eos % (Auto) 1.6 (0-4.4) % Baso % (Auto) 0.4 (0.2-1.2) % Lymph # (Auto) 1.40 (0.9-3.2) K/mm3 [place] # (Auto) 0.4 (0.1-0.6) K/mm3 Eos # (Auto) 0.1 (0-0.3) K/mm3 Baso # (Auto) 0.0 (0.0-0.1) K/mm3 Abs Immat Gran (auto) 0.01 (0.00-0.031) K/mm3
== END 2023-12-09 17:36 | disposition home or self-care (01) ==
PROVIDERS: Emergency Provider Emergency Medicine
DX: N94.6 Dysmenorrhea, unspecified (principal); E78.5 Hyperlipidemia, unspecified
CPT/HCPCS: 36415; 80053; 81001; 81025; 85025; 96372; 99283; J1885

== ENCOUNTER 2024-01-10 17:50 | Emergency (ER) | payer MEDICARE, MEDICAID, SELFPAY ==
[2024-01-10 18:00] VITALS: BP 109/68; PULSE 80; RESP 18; TEMP 36.4; O2SAT 100
--- NOTE | 2024-01-10 18:04 | ED.SKABFB ---
HPI - Skin/Abscess/Foreign Bdy General Chief complaint: Skin/Abscess/Foreign Body Stated complaint: Rash Time Seen by Provider: 01/10/24 18:08 Source: patient Mode of arrival: ambulatory Limitations: no limitations History of Present Illness HPI narrative: Smita is a 33-year-old female patient presenting to clinic today with complaints of a rash on her arms, folds of axilla, to the anterior lower abdomen and on the sides of her abdomen. Rash is itchy. Reports that she has recently changed her fabric softener prior to developing this rash. History of eczema. Related Data Home Medications Medication Instructions Recorded Confirmed bupropion HCl 300 mg 24 hr tablet, mg PO 01/10/24 extended release hydroxyzine pamoate 50 mg capsule mg 01/10/24 norethindrone (contraceptive) 0.35 mg 01/10/24 mg tablet quetiapine 100 mg tablet mg 01/10/24 quetiapine 25 mg tablet mg 01/10/24 topiramate 50 mg tablet mg 01/10/24 trazodone 50 mg tablet mg 01/10/24 Allergies Allergy/AdvReac Type Severity Reaction Status Date / Time risperidone Allergy Unknown Swelling Verified 01/10/24 17:54 of Lip/Tongue/Throat ANTIPSYCHOTICS Allergy Unknown Siezure Uncoded 01/10/24 17:54 Review of Systems Review of Systems: Pertinent positives per HPI. Patient denies any fever, chills, headache, visual changes, dizziness, cough, runny nose, sore throat, shortness of breath, chest pain, palpitations, nausea, vomiting, diarrhea, constipation, abdominal pain, or any urinary issues. PMF Past Medical History Medical History Anxiety Bipolar disorder Depression HLD (hyperlipidemia) Surgical History Surgical History Hx of section Social History Social History Smoking status: Smoker, status unknown Substance use type: marijuana, crack/cocaine and amphetamines Gender identity (if verbalized by the patient): Female Comments At the time of my signature, I reviewed and agree with the nursing past medical, surgical, social, and family history. There is no relevant family history pertinent to the patient complaint. Exam Narrative: General: Well-developed, well nourished, in no apparent distress Head: Normocephalic, atraumatic. Cardio: Regular rate and rhythm, s1 and s2 normal, no murmur appreciated. Resp: Clear to auscultation bilaterally, no rhonchi, rales, wheezing or rubs. Integumentary: [place], warm, and dry, intact without lesion, red, raised, itchy, scaly appearing-rash to to bilateral arms, elbows, axillas, lower abdomen, and bilateral sides. Course Course Emergency Course: Portions of this record may have been created with voice recognition software. Level of Care: Express Care Visit Vital Signs Vital signs: Vital Signs Temperature 36.4 C 01/10/24 18:00 Pulse Rate 80 01/10/24 18:00 Respiratory Rate 18 01/10/24 18:00 Blood Pressure 109/68 01/10/24 18:00 Pulse Oximetry 100 01/10/24 18:00 Oxygen Delivery Room Air 01/10/24 18:00 Temperature 36.4 C 01/10/24 18:00 Pulse Rate 80 01/10/24 18:00 Respiratory Rate 18 01/10/24 18:00 Blood Pressure 109/68 01/10/24 18:00 Pulse Oximetry 100 01/10/24 18:00 Oxygen Delivery Room Air 01/10/24 18:00 Vital signs reviewed MDM - Skin/Abscess/Foreign Bdy MDM Narrative Medical decision making narrative: At the time of visit patient is resting comfortably on the exam table. Patient appears to be nontoxic. Plan: I suspect patient has eczema/dermatitis. Prescription for triamcinolone cream and prednisone was sent to the pharmacy. Supportive measures were discussed with the patient and they voiced understanding discharge instructions and agrees to treatment plan. Return precautions reviewed Differential Diagnosis Differential diagnosis:
== END 2024-01-10 18:14 | disposition home or self-care (01) ==
PROVIDERS: Emergency Provider Nurse Practitioner Family
DX: L25.9 Unspecified contact dermatitis, unspecified cause (principal); F41.9 Anxiety disorder, unspecified; F32.A Depression, unspecified; E78.5 Hyperlipidemia, unspecified; Z79.899 Other long term (current) drug therapy
CPT/HCPCS: 99213; G0463

== ENCOUNTER 2024-02-24 14:47 | Emergency (ER) | payer MEDICARE, MEDICAID, SELFPAY ==
[2024-02-24 14:50] VITALS: BP 117/73; PULSE 87; RESP 14; TEMP 36.7; O2SAT 100
--- NOTE | 2024-02-24 16:40 | ED.SKABFB ---
HPI - Skin/Abscess/Foreign Bdy General Chief complaint: Skin/Abscess/Foreign Body Stated complaint: rash Time Seen by Provider: 02/24/24 16:24 Source: patient and old records reviewed Mode of arrival: ambulatory Limitations: no limitations History of Present Illness HPI narrative: Patient is a 33 y/o female, with PMH of bipolar disorder and polysubstance abuse, who presents to the ED with c/o rash. Patient reports having an intermittent rash to her bilateral hands, forearms, lower extremities, right foot for the last several weeks. She was seen in urgent care recently and prescribed oral prednisone and triamcinolone ointment. She states after taking the prednisone, the rash improved dramatically, but has since returned. Rash is itchy. History of eczema. She does also note new fabric softener. Denies family members with similar symptoms. Denies fevers. Related Data Home Medications Medication Instructions Recorded Confirmed bupropion HCl 300 mg 24 hr tablet, mg PO 01/10/24 extended release hydroxyzine pamoate 50 mg capsule mg 01/10/24 norethindrone (contraceptive) 0.35 mg 01/10/24 mg tablet quetiapine 100 mg tablet mg 01/10/24 quetiapine 25 mg tablet mg 01/10/24 topiramate 50 mg tablet mg 01/10/24 trazodone 50 mg tablet mg 01/10/24 Allergies Allergy/AdvReac Type Severity Reaction Status Date / Time risperidone Allergy Unknown Swelling Verified 02/24/24 16:40 of Lip/Tongue/Throat ANTIPSYCHOTICS Allergy Unknown Siezure Uncoded 02/24/24 16:40 Review of Systems Review of Systems: CONSTITUTIONAL: Denies fever, chills, or sweats. SKIN: See HPI NEUROLOGIC: Denies headache, dizziness, numbness, or weakness. All systems reviewed & are unremarkable except as noted in HPI and below PMFSH Past Medical History Medical History Anxiety Bipolar disorder Depression HLD (hyperlipidemia) Surgical History Surgical History Hx of section Social History Social History Smoking status: Smoker, status unknown Substance use type: marijuana, crack/cocaine and amphetamines Gender identity (if verbalized by the patient): Female Exam Narrative: GENERAL: Well appearing, well-nourished, non-toxic, in no acute distress. HEAD: Normocephalic, atraumatic. ENT: Poor dentition. RESPIRATORY: Airway patent, respirations nonlabored. CARDIOVASCULAR: Regular rate and rhythm MUSCULOSKELETAL: Moves all extremities. No gross deformities. SKIN: Warm, dry. Scattered patches of erythematous scaling dry skin to oliva volar wrist, extensor surfaces of oliva elbows extending into forearms, oliva shins, R dorsal foot/ankle. NEURO: A&O X3. Speech clear. PSYCHIATRIC: Appropriate mood and affect. Normal interaction. Course Vital Signs Vital signs: Vital Signs Temperature 98.1 F 02/24/24 14:50 Pulse Rate 87 02/24/24 14:50 Respiratory Rate 14 02/24/24 14:50 Blood Pressure 117/73 02/24/24 14:50 Pulse Oximetry 100 02/24/24 14:50 Temperature 98.1 F 02/24/24 14:50 Pulse Rate 65 02/24/24 16:41 Respiratory Rate 16 02/24/24 16:41 Blood Pressure 102/70 02/24/24 16:41 Pulse Oximetry 99 02/24/24 16:41 MDM - Skin/Abscess/Foreign Bdy MDM Narrative Medical decision making narrative: Exam consistent with eczema. Patient concerned for scabies. I advised rash does not appear consistent with scabies. No burrows, no webspace or distinct hand lesions. Same household family members without similar symptoms. No evidence of anaphylaxis or airway compromise. No evidence for infection, does not appear consistent with cellulitis. Vitals stable, afebrile. Will prescribe Medrol Dosepak as patient had improvement with previous steroids. Advised patient to continue with aggressive skin hydration, topical
[2024-02-24 16:41] VITALS: BP 102/70; PULSE 65; RESP 16; O2SAT 99
== END 2024-02-24 17:09 | disposition home or self-care (01) ==
PROVIDERS: Emergency Provider Physician Assistant
DX: L20.9 Atopic dermatitis, unspecified (principal); E78.5 Hyperlipidemia, unspecified; F31.9 Bipolar disorder, unspecified; F41.9 Anxiety disorder, unspecified
CPT/HCPCS: 99283

== ENCOUNTER 2024-03-20 17:42 | Emergency (ER) | payer MEDICARE, MEDICAID, SELFPAY ==
[2024-03-20 18:00] VITALS: BP 152/78; PULSE 89; RESP 16; TEMP 37; O2SAT 100
--- NOTE | 2024-03-20 18:32 | ED.SKABFB ---
HPI - Skin/Abscess/Foreign Bdy General Chief complaint: Skin/Abscess/Foreign Body Stated complaint: Rash Time Seen by Provider: 03/20/24 18:10 Source: patient, RN notes reviewed and old records reviewed Mode of arrival: ambulatory Limitations: no limitations History of Present Illness HPI narrative: 33 year old female present to express care with complaints of red irritating rash generalized for the past 3 months. Patient reports that she has been putting Eucerin lotion on it but it started burning so she she has then been applying just Vaseline to rash. Patient also has eczema rash to the top of right foot along with rash which is excoriated and has some weeping noted. Patient denies any fevers chills or sweats. Ptient has been treated with Triamcinolone ointment prednisone and also Medrol dose packs with no resolution in rash. Patient has generalized rash especially to arms hands with some rash to finger webs noted also with acute weeping rash to dorsal foot. Patient denies any one else in household having rash states is itching especially at night. MD complaint: rash (generlized) Onset (ago): month(s) (2-3 months getting worse) Location: generalized Severity: severe Quality: burning and pruritic Exacerbating factors: other (patient also has eczema) Treatments prior to arrival: OTC topical medication, corticosteroid and other Related Data Home Medications Medication Instructions Recorded Confirmed bupropion HCl 300 mg 24 hr tablet, 300 mg PO DIRECTED 01/10/24 03/20/24 extended release hydroxyzine pamoate 50 mg capsule 50 mg PO DAILY 01/10/24 03/20/24 norethindrone (contraceptive) 0.35 0.35 mg PO DIRECTED 01/10/24 03/20/24 mg tablet quetiapine 100 mg tablet 100 mg PO DAILY 01/10/24 03/20/24 quetiapine 25 mg tablet 25 mg PO DIRECTED 01/10/24 03/20/24 topiramate 50 mg tablet 50 mg PO DIRECTED 01/10/24 03/20/24 trazodone 50 mg tablet 50 mg PO DIRECTED 01/10/24 03/20/24 Allergies Allergy/AdvReac Type Severity Reaction Status Date / Time risperidone Allergy Unknown Swelling Verified 03/20/24 17:47 of Lip/Tongue/Throat ANTIPSYCHOTICS Allergy Unknown Siezure Uncoded 03/20/24 17:47 Review of Systems Review of Systems: CONSTITUTIONAL: Denies fever, chills, or sweats. CARDIOVASCULAR: Denies chest pain, palpitations, or edema. RESPIRATORY: Denies cough or dyspnea. SKIN: Reports generalized itching rash with red excoriated tissue note to dorsal right foot with some weeping some lesions noted in web spaces of fingers. MUSCULOSKELETAL: Denies joint pain or myalgia. NEUROLOGIC: Denies headache, numbness, or weakness. All systems reviewed & are unremarkable except as noted in HPI and below PMFSH Past Medical History Medical History (Updated 03/21/24 @ 14:46 by Poornima Shannon NP) Anxiety Bipolar disorder Depression HLD (hyperlipidemia) Surgical History Surgical History Hx of section Social History Social History Smoking status: Smoker, status unknown Substance use type: marijuana, crack/cocaine and amphetamines Gender identity (if verbalized by the patient): Female Comments At time of signature, agree with nursing past medical, surgical, social and family history. There is no relevant family history pertinent to the presenting complaint Exam Narrative: GENERAL: Well-appearing, well-nourished, and in no some acute distress.related to rash HEAD: Normocephalic, atraumatic. EYES: PERRLA, conjunctivae clear, and EOMI. ENT: Mucous membranes moist. Oropharynx without edema, erythema or lesions. NECK: Supple. No lymphadenopathy CHEST: Clear to auscultation. No respiratory distress. HEART: Regular rate and rhythm. SKIN: Warm, dry.? Patches of erythema generalized on body with eczema rash and rash noted to top of right dorsal foot with weeping, some l
== END 2024-03-20 18:56 | disposition home or self-care (01) ==
PROVIDERS: Emergency Provider Registered Nurse; PCP Internal Medicine Infectious Disease
DX: R21 Rash and other nonspecific skin eruption (principal); L03.115 Cellulitis of right lower limb; B86 Scabies; F41.9 Anxiety disorder, unspecified; F31.9 Bipolar disorder, unspecified; E78.5 Hyperlipidemia, unspecified; F12.90 Cannabis use, unspecified, uncomplicated; F15.90 Other stimulant use, unspecified, uncomplicated; F14.90 Cocaine use, unspecified, uncomplicated
CPT/HCPCS: 99213; G0463

== ENCOUNTER 2024-05-15 14:35 | Emergency (ER) | payer MEDICARE, MEDICAID, SELFPAY ==
[2024-05-15] VITALS (10 sets, daily range): BP systolic 91–141; BP diastolic 56–96; PULSE 65–99; RESP 14–27; TEMP 37.1; O2SAT 97–100
--- NOTE | 2024-05-15 14:53 | ECG_ITS ---
Test Date: 2024-05-15 15:48:25 Measurements Intervals [place] Rate: 85 P: 50 MN: 148 QRS: -9 QRSD: 86 T: 21 QT: 388 QTc: 462 Interpretive Statements SINUS RHYTHM NORMAL ELECTROCARDIOGRAM No previous ECG available for comparison Electronically Signed On 05-16-2024 07:20:01 CDT by Jose Raul Amaya M.D.
[2024-05-15 15:15] LABS: Basophils Absolute Auto 0.1 K/mm3 (0.0-0.1); Basophils Percent Auto 0.4 % (0.2-1.2); Eosinophils Percent Auto 0.2 % (0-4.4); Hemoglobin 15.1 g/dL (12.0-15.0); Immature Granulocyte Absolute 0.05 K/mm3 (0.00-0.031); Immature Granulocyte Percent A 0.4 % (0-0.5); Lymphocytes Percent Auto 18.9 % (18.3-44.2); Mean Corpuscular HGB Conc 34.3 g/dl (32-36); Mean Corpuscular Hemoglobin 29.3 pg (26-34); Mean Corpuscular Volume 85.4 fl (80-100); Monocytes Absolute Auto 0.7 K/mm3 (0.1-0.6); Monocytes Percent Auto 5.1 % (2.6-8.5); Platelet Count Result 274 k/mm3 (150-375); Red Blood Count 5.15 M/mm3 (4.2-5.4); Red Cell Distribution Width 14.7 % (11.5-14.5); White Blood Count 13.3 K/mm3 (4.5-10.0)
[2024-05-15 15:25] LABS: Alanine Aminotransferase 28 U/L (6-35); Albumin Level 5.3 g/dL (3.5-5.1); Alkaline Phosphatase 86 U/L (38-126); Anion Gap 14 mmol/L (4-12); Aspartate Amino Transferase 47 U/L (14-36); Bilirubin,Total 0.8 mg/dL (0.2-1.3); Blood Urea Nitrogen 10 mg/dL (7-17); Calcium 9.4 mg/dL (8.4-10.2); Carbon Dioxide 20 mmol/L (22-30); Chloride 110 mmol/L (98-107); Estimated CRCL calculation 102 ml/min; Estimated Glomerular Filt Rate > 60; Glucose 84 mg/dL (65-110); Potassium 3.8 mmol/L (3.4-5.0); Sodium 144 mmol/L (137-145)
[2024-05-15 15:27] LABS: Prothrombin Time 13.6 Seconds (11.1-14.7)
[2024-05-15 15:28] LABS: Partial Thromboplastin Time 28.4 Seconds (22.3-36.8)
[2024-05-15 15:42] LABS: Acetaminophen < 10 ug/mL (10-30); Ethanol < 10 mg/dL (<10); Salicylate < 1.0 mg/dL (2-20)
[2024-05-15 15:45] LABS: Appearance Urine Clear (Clear); Bacteria Urine None Seen /hpf; Bilirubin Urine Negative (Negative); Blood Urine Negative (Negative); Color Urine Yellow (Yellow); Glucose Urine UA Negative (Negative); Ketones Urine 2+ mg/dL (Negative); Leukocyte Esterase Ur Negative LEU/UL (Negative); Nitrate Urine Negative (Negative); Non Pathogenic Casts 0-2; Protein Urine Trace mg/dL (Negative); RBC Urine 0-2 /hpf (0-2); Specific Grav Ur 1.023 (1.001-1.035); Squamous Epithelial Cell Urine Few /hpf (Few); Urobilinogen Urine 0.2 mg/dL (<2.0); WBC Urine 0-5 /hpf (0-3); pH Urine 6.5 (5.0-9.0)
[2024-05-15 15:49] LABS: Add Urine Microscopic? YES
[2024-05-15 15:52] LABS: Influenza A QL RT-PCR Negative (Negative); Influenza B QL RT-PCR Negative (Negative); RSV RNA, RT-PCR Negative (Negative); SARS-CoV-2 RNA PCR Negative (Negative)
[2024-05-15 15:57] LABS: Amphetamine Screen Urine Positive (Negative); Barbiturate Screen Urine Negative (Negative); Benzodiazepines Screen Urine Negative (Negative); Cannabinoid Screen Urine Positive (Negative); Cocaine Screen Urine Negative (Negative); Methadone Screen Urine Negative (Negative); Opiate Screen Urine Negative (Negative); Phencyclidine Screen Urine Negative (Negative)
--- NOTE | 2024-05-15 16:20 | PC.NURSE ---
when assessing patient they state that they drank 3 bottles of wine yesterday and a pint of whiskey from 3a-7am this morning. they also states they recently did meth and are unsure if it was laced with fentanyl . patient is calm and cooperative
[2024-05-15] MEDS: ONDANSETRON INJ 4 MG/2 ML VIAL IV PUSH (16:26)
[2024-05-15] MEDS: LORazepam (*CRX) 1 MG TABLET PO (16:27)
--- NOTE | 2024-05-15 17:29 | ED.GENADULT ---
HPI - General Adult General Chief complaint: Psychiatric Symptoms Stated complaint: I'm having really bad suicidal thoughts Time Seen by Provider: 05/15/24 14:51 History of Present Illness HPI narrative: 33-year-old female presented on to the emergency department for evaluation for worsening suicidal ideation and alcohol withdrawal. Patient states that she has had worsening suicidal ideation over the course of the last few days. Patient has had inpatient psychiatric hospitalization approximately 1 year ago. Patient does have a psychiatrist that she follows up with but did not communicate her worsening. Patient reports she does have a prior history of alcohol abuse but has not been drinking daily for very long time. Patient reports last night she had 3 bottles of wine and this morning she had a pt of whiskey. Related Data Home Medications Medication Instructions Recorded Confirmed bupropion HCl 300 mg 24 hr tablet, 300 mg PO DIRECTED 01/10/24 03/20/24 extended release hydroxyzine pamoate 50 mg capsule 50 mg PO DAILY 01/10/24 03/20/24 norethindrone (contraceptive) 0.35 0.35 mg PO DIRECTED 01/10/24 03/20/24 mg tablet quetiapine 100 mg tablet 100 mg PO DAILY 01/10/24 03/20/24 quetiapine 25 mg tablet 25 mg PO DIRECTED 01/10/24 03/20/24 topiramate 50 mg tablet 50 mg PO DIRECTED 01/10/24 03/20/24 trazodone 50 mg tablet 50 mg PO DIRECTED 01/10/24 03/20/24 Allergies Allergy/AdvReac Type Severity Reaction Status Date / Time risperidone Allergy Unknown Swelling Verified 05/15/24 16:31 of Lip/Tongue/Throat ANTIPSYCHOTICS Allergy Unknown Siezure Uncoded 05/15/24 16:31 Review of Systems Review of Systems: All systems reviewed & are unremarkable except as noted in HPI and below PMFSH Past Medical History Medical History (Updated 05/15/24 @ 19:11 by Ron Martinez MD) Anxiety Bipolar disorder Depression HLD (hyperlipidemia) Surgical History Surgical History Hx of section Social History Social History Smoking status: Smoker, status unknown Substance use type: marijuana and methamphetamine Gender identity (if verbalized by the patient): Female Exam Narrative: APPEARANCE: Well appearing, no pain, no distress, well-nourished. HEAD: normocephalic, atraumatic. EYES: PERRLA/EOMI, conjunctivae clear. NOSE: Normal no drainage EARS:TMS clear with good light reflex. THROAT: Pharynx clear, no exudate. NECK: Supple. No adenopathy, no masses. RESPIRATORY: Airway patent, respirations nonlabored. Clear to auscultation bilaterally, no rales, rhonchi, wheezing. CARDIOVASCULAR: Regular rate and rhythm without murmurs rubs or gallops. ABDOMINAL: Soft, nontender, nondistended, normal bowel sounds MUSCULOSKELETAL: Moves all extremities. Strength/ROM intact, No edema, No calf tenderness. NEURO: Alert. Cranial nerves II through XII intact. Grossly intact SKIN: Warm, dry. Normal Color PSYCHIATRIC: Flat affect Course Course Emergency Course: Patient was evaluated by crisis and patient agreed to sign safety agreement was comfortable plan for discharge Vital Signs Vital signs: Vital Signs Temperature 98.7 F 05/15/24 14:37 Pulse Rate 97 05/15/24 14:37 Respiratory Rate 16 05/15/24 14:37 Blood Pressure 141/96 H 05/15/24 14:37 Pulse Oximetry 97 05/15/24 14:37 Oxygen Delivery Room Air 05/15/24 14:37 Temperature 98.7 F 05/15/24 14:37 Pulse Rate 86 05/15/24 17:48 Respiratory Rate 14 05/15/24 17:48 Blood Pressure 99/57 L 05/15/24 17:48 Pulse Oximetry 98 05/15/24 17:48 Oxygen Delivery Room Air 05/15/24 14:37 Medical Decision Making MDM Narrative Medical decision making narrative: 33-year-old female presents emergency department for evaluation for alcohol withdrawal and suicidal ideation. Patient was afebrile but does have a conchita
--- NOTE | 2024-05-15 23:35 | PC.NURSE ---
care and report given to SHARRI Cornejo. all questions answered.
--- NOTE | 2024-05-15 23:57 | PC.NURSE ---
Spoke with RN from [facility] who tells me if the pt cannot arrive at facility by 0230 then she will have to arrive after 0900.
[2024-05-16] MEDS: LORazepam (*CRX) 1 MG TABLET PO (00:50)
[2024-05-16 01:08] LABS: Pregnancy On Board Control Positive; Urine Pregnancy Test Negative
--- NOTE | 2024-05-16 01:41 | PC.NURSE ---
[facility] requesting urine preg test to be sent via fax to [phone]. Results sent at this time.
--- NOTE | 2024-05-16 01:45 | PC.NURSE ---
Pt has been calm and cooperative. Awaiting transport to [place]. Denies any SI. Ok per Dr Berg to [place] sitter for pt.
== END 2024-05-16 03:08 ==
PROVIDERS: Emergency Medicine; Emergency Provider Emergency Medicine; PCP Internal Medicine Infectious Disease
DX: R45.851 Suicidal ideations (principal); E78.5 Hyperlipidemia, unspecified; F32.A Depression, unspecified; F41.9 Anxiety disorder, unspecified; Z20.822 Contact with and (suspected) exposure to COVID-19; Z79.899 Other long term (current) drug therapy
CPT/HCPCS: 36415; 80053; 80307; 81001; 81025; 85025; 85610; 85730; 87637; 93005; 96374; 99285; A9270; J2405

== ENCOUNTER 2025-07-29 01:51 | Day surgery (SDC) | payer OTHER, MEDICAID, SELFPAY ==
[2025-07-21 18:12] VITALS: BMI 34.4
--- NOTE | 2025-07-21 18:21 | PC.NURSE ---
Report to the Outpatient Waiting Room, entrance under the green pavilion located off [facility], at time __0600_ on date _07/29/25__. Planned Procedure Time: _0730_.? Time changes happen often and if your time is changed the preop area will call you the afternoon before. - You and your visitor will be asked to self-screen and do not enter if you have any COVID symptoms. Please call surgeon if you need to reschedule. - A mask is optional within the hospital at this time. - No food OR DRINK from midnight until time of surgery and no smoking, or chewing tobacco (or any form of nicotine). No chewing gum, candy or mints. NO EDIBLES Take only the following medications with a SIP of water on the morning of surgery: _BUPROPION, HYDROXIZINE, QUETIAPINE DO NOT STOP ANY OF YOUR OTHER PRESCRIPTION MEDICATIONS PRIOR TO SURGERY EXCEPT THE FOLLOWING Hold all vitamins and supplements for 3 days per anesthesiologist. Medications to discontinue per physician Date to take last dose Please no make-up, nail ecuadorean, hairspray, perfume, deodorant, or body powder the day of surgery.? No jewelry (including any body piercings) or valuables the day of surgery, leave them at home.? Please take a shower or bath the night before, or the morning of, surgery with an antibacterial soap.? Wear comfortable, loose fitting clothing.? Children are encouraged to wear pajamas. - Jewelry must be removed prior to entering the operating room.? Rings and piercings that are not removed may be cut off. - The hospital will not accept responsibility for valuables.? - Please leave all valuables, including medications, at home the day of surgery. If you are going home after surgery, a licensed cdl driver must drive you home.? - NO public transportation without another adult if you receive anesthesia. - We recommend that an adult stay with you for 24 hours following discharge. - We also recommend that you do not drive, make important decision, drink alcoholic beverages, or take any drugs that were not prescribed by your health care provider for at least 24 hours after your discharge time. For Pediatric surgeries, we recommend two adults accompany the child home. Follow any additional instructions given to you from your surgeon. Telephone instructions given to _PATIENT__and asked if any additional questions and then verbalized understanding. Patient advised to call surgeon office or pre surgery nurse liaison [phone] if any additional questions.
--- OUTSIDE RECORDS SUMMARY | 2025-07-29 01:55 | XMS_ITS | Patient Health Record ---
Author Organization [facility] Address [address] [place] [address] Care Team Providers [facility] Name Role Phone Yosef Aranda Primary Care Provider BladeAnthony sladeae Unavailable [phone] Hoa Centeno Unavailable [phone] Allergies Allergen (clinical drug ingredient) Drug/Non Drug Allergy documented on EMR Reaction Allergy Type Onset Date Status risperidone Risperdal Unknown Drug Allergy Activ e Reason For Referral No Information Medications Medication SIG (Take, Route, Frequency, Duration) Notes Start Date End Date Status hydrOXYzine HCl 50 MG TAKE 1 TABLET BY M OUTH 4 TIMES DAILY NEEDED; Duration: 30 Active QUEtiapine Fumarate 50 MG 1-2 tablets on ce daily in the morning Orally; Duration: 30 days Active QUEtiapine Fumarate 300 MG 1 tablet Oral ly once nightly at bedtime; Duration: 30 days Active buPROPion HCl ER (XL) 150 MG TAKE 3 TABLETS BY MOUTH EVERY MORNING Orally Once a day; Duration: 30 days Active traZODone HCl 300 MG 1 tablet Orally at bedtime as needed for insomnia; Duration: 30 days Active Social History Tobacco Use: Social History Observation Description Date Details (start date - stop date) Current Smoker NA - NA Sex Assigned At : Social History Observation Description Sex Assigned At Female Dont use, Tobacco Use/Smoking Question Answer Notes Are you a current smoker How often do you smoke cigarettes? every day How many cigarettes a day do you smoke? 6-10 Tobacco Control (Standard) Question Answer Notes Additional Findings: Tobacco user Light cigarett e smoker (1-9 cigs/day) How many cigarettes a day do you smoke? 5 or les s How soon after you wake up d o you smoke your first cigarette? After 60 minutes Are you interested in quitting? Ready to quit Tobacco use: Current smoker Section Notes: Problems Problem Type SNOMED Code ICD Code Onset Dates Problem Status W/U Status Risk Notes Problem Severe depressed bipolar I disorder without psychotic features (26235714) Bipolar disorder, current episode depressed, severe, without psychotic features (F31.4) 07/25/20 19 Active confirmed Problem Long-term current use of drug therapy (224415491) Other roasterman (current) drug therapy (Z79.899) Active confirmed Problem Posttraumatic stress disorder (67920833) PTSD (post-traumat ic stress disorder) (F43.10) Active confirmed Problem Bipolar 1 disorder (263447317) Bipolar 1 disorder (F31.9) 06/08/20 16 Active confirmed Problem Cannabis dependence (10960650) Cannabis dependence (F12.20) Active confirmed Problem Generalized anxiety disorder (31244686) DEBORAH (generalized anxiety disorder) (F41.1) Active confirmed Problem Panic disorder (223986831) Panic disorder (F41.0) Active confirmed Problem Alcohol dependence (42383737) Alcohol dependence (F10.20) Active confirmed Problem Posttraumatic stress disorder (99590825) Chronic post-traumati c stress disorder (PTSD) (F43.12) 06/23/20 21 Active confirmed PCL-5 80 Problem Nicotine dependence (45383385) Nicotine dependence (F17.200) Active confirmed Problem Bipolar affective disorder, currently depressed, moderate (134066425) Bipolar affective disorder, currently depressed, moderate (F31.32) 06/13/20 17 Active confirmed with psychotic features Problem Bipolar disorder, most recent episode manic (331560738) Bipolar disorder, most recent episode manic (F31.10) 10/06/20 16 Active confirmed Problem Opioid use disorder (3576432118) Opioid use disorder (F11.99) Active confirmed Vital Signs Height 60 in 05/26/2025 Weight 180 lbs 05/26/2025 BMI 35.15 kg/m2 05/26/2025 Encounters Encounter Location Date Provider Diagnosis [address] [place] [address] 09/04/2024 Yosef Aranda Bipolar 1 disorder F31.9 ; DEBORAH (generalized anxiety disorder) F41.1 ; PTSD (post-traumatic stress disorder) F43.10 ; Nicotine dependence F17.200 and Cannabis dependence F12.[address] [address] 12/03/2024 Yosef Aranda Bipolar 1 disorder F31.9 ; DEBORAH (generalized anxiety disorder) F41.1 ; PTSD (post-traumatic stress disorder) F43.10 ; Nicotine dependence F17.200 and Cannabis dependence F12.[address] [address] 01/07/2025 Yosef Aranda Bipolar 1 disorder F31.9 ; DEBORAH (generalized anxiety disorder) F41.1 ; PTSD (post-traumatic stress disorder) F43.10 ; Nicotine dependence F17.200 and Cannabis dependence F12.[address] [address] 02/05/2025 Yosef Aranda Bipolar 1 disorder F31.9 ; DEBORAH (generalized anxiety disorder) F41.1 ; PTSD (post-traumatic stress disorder) F43.10 ; Nicotine dependence F17.200 and Cannabis dependence F12.[address] [address] 03/24/2025 Yosef Aranda Bipolar 1 disorder F31.9 ; DEBORAH (generalized anxiety disorder) F41.1 ; PTSD (post-traumatic stress disorder) F43.10 ; Nicotine dependence F17.200 and Cannabis dependence F12.[address] [address] 04/16/2025 Yosef Aranda Bipolar 1 disorder F31.9 ; DEBORAH (generalized anxiety disorder) F41.1 ; PTSD (post-traumatic stress disorder) F43.10 ; Nicotine dependence F17.200 and Cannabis dependence F12.[address] [address] 05/26/2025 Hoa Jacobo Bipolar 1 disorder F31.9 ; DEBORAH (generalized anxiety disorder) F41.1 ; PTSD (post-traumatic stress disorder) F43.10 ; Nicotine dependence F17.200 and Cannabis dependence F12.[address] [place] [address] 02/05/[address] [place] [address] 03/05/[address] [place] [address] 05/14/2025 Hoa Centeno Bipolar 1 disorder F31.[address] [address] 06/15/2025 Hoa Jacobo DEBORAH (generalized anxiety disorder) F41.1 Assessments Encounter Date Diagnosis (ICD Code) Assessment Notes Treatment Notes Treatment Clinical Notes Section Notes 09/04/2024 Bipolar 1 disorder (ICD-10 - F31.9) Duration (acute/chronic), stability (controlled/uncon trolled): Chronic, most well controlled on current medication regimen, room for improvement Current medications/effic acy: Somewhat, room for improvement Previous medication trials: fluoxetine (ineffective), paroxetine (ineffective) Current/previous therapies: Not currently following up with therapy - followed up with therapy previously, been years Examination as documented - see pertinent aspects of office visit documentation. Pertinent diagnostics: LABS MONITORED BY PCP Differential diagnoses: RECOMMENDATIONS: INCREASE quetiapine as prescribed and switch to ER formulation, STOP immediate release formulation as currently prescribed - educated patient/guardian on adverse effects, risks and benefits, as well as alternative treatments INCREASE hydroxyzine to 75-100mg in the AM, 50mg in the afternoon, and 50mg in the PM - educated patient/guardian on adverse effects, risks and benefits, as well as alternative treatments INCREASE trazodone as prescribed - educated patient/guardian on adverse effects, risks and benefits, as well as alternative treatments Continue other medications as prescribed - educated patient/guardian on adverse effects, risks and benefits, as well as alternative treatments Consume well balanced diet, preferably low in saturated fats (solid at room temperature, such as butter, margarine, Crisco, etc) and low in sodium (<2,000mg per day). Consume plenty of fruits/vegetables , healthy grains/whole grains, unsaturated/healt hy fats (liquid at room temperature, such as olive oil, sunflower seed oil, canola, vegetable, etc.). Exercise regularly - Develop an exercise routine. 30 minutes of moderate exercise (walking at a brisk pace) 5 times per week is recommended. You should work hard enough to cause a sweat but still be able to talk with others while exercising. Exercise improves overall health - improves blood pressure and blood sugar, helps control weight, reduces stress, and improves mood. Practice stress reduction techniques, such as guided imagery, journaling, aromatherapy, acupuncture/acupr essure, deep breathing, etc. Practice healthy sleep hygiene - maintain regular routine, no caffeine after 1PM, no exercise 1-2 hours prior to bedtime, keep bedroom dark and cool, no TV or electronics while in bed. Consider melatonin as needed. Consider cognitive behavioral therapy for insomnia (CBT-I). Consider/Continue therapy. Consider/Continue substance cessation therapy as needed - contact office if desiring medication assisted therapy. Manage co-morbid conditions. Continue monitoring symptoms - report persistent or worsening/concern ing symptoms to the office or go to the ER. For mental health CRISIS, please reach out to 911 ([employer] Suicide and Crisis Lif[employer]), 911, go to the emergency department, or contact the [facility] Crisis Unit/Team. Follow up as scheduled in 4 weeks or sooner if necessary. Follow up with PCP and/or other specialists as advised. NEXT STEP: Consider increasing quetiapine ER pending response/tolerabi lity. Consider increasing trazodone as needed. Consider adding other mood stabilizing agent such as lamotrigine. 09/04/2024 DEBORAH (generalized anxiety disorder) (ICD-10 - F41.1) See assessment and plan for bipolar 1 disorder 12/03/2024 Bipolar 1 disorder (ICD-10 - F31.9) Duration (acute/chronic), stability (controlled/uncon trolled): Chronic, well controlled with recent medication adjustments, although patient recently hospitalized after abruptly stopping medications, see HPI Current medications/effic acy: Yes Previous medication trials: fluoxetine (ineffective), paroxetine (ineffective) Current/previous therapies: Not currently following up with therapy - followed up with therapy previously, been years Examination as documented - see pertinent aspects of office visit documentation. Pertinent diagnostics: LABS MONITORED BY PCP Differential diagnoses: RECOMMENDATIONS: Continue medications as prescribed - educated patient/guardian on adverse effects, risks and benefits, as well as alternative treatments Consume well balanced diet, preferably low in saturated fats (solid at room temperature, such as butter, margarine, Crisco, etc) and low in sodium (<2,000mg per day). Consume plenty of fruits/vegetables , healthy grains/whole grains, unsaturated/healt hy fats (liquid at room temperature, such as olive oil, sunflower seed oil, canola, vegetable, etc.). Exercise regularly - Develop an exercise routine. 30 minutes of moderate exercise (walking at a brisk pace) 5 times per week is recommended. You should work hard enough to cause a sweat but still be able to talk with others while exercising. Exercise improves overall health - improves blood pressure and blood sugar, helps control weight, reduces stress, and improves mood. Practice stress reduction techniques, such as guided imagery, journaling, aromatherapy, acupuncture/acupr essure, deep breathing, etc. Practice healthy sleep hygiene - maintain regular routine, no caffeine after 1PM, no exercise 1-2 hours prior to bedtime, keep bedroom dark and cool, no TV or electronics while in bed. Consider melatonin as needed. Consider cognitive behavioral therapy for insomnia (CBT-I). Consider/Continue therapy. Consider/Continue substance cessation therapy as needed - contact office if desiring medication assisted therapy. Manage co-morbid conditions. Continue monitoring symptoms - report persistent or worsening/concern ing symptoms to the office or go to the ER. For mental health CRISIS, please reach out to [phone] ([employer] Suicide and Crisis Lifeline), 911, go to the emergency department, or contact the [facility] Crisis Unit/Team. Follow up as scheduled in 4 weeks or sooner if necessary. Follow up with PCP and/or other specialists as advised. NEXT STEP: Consider increasing quetiapine ER pending response/tolerabi lity. Consider increasing trazodone as needed. Consider adding other mood stabilizing agent such as lamotrigine. 01/07/2025 Bipolar 1 disorder (ICD-10 - F31.9) Duration (acute/chronic), stability (controlled/uncon trolled): Chronic, improved status post hospitalization, still some room for improvement, see HPI Current medications/effic acy: Somewhat, room for improvement Previous medication trials: fluoxetine (ineffective), paroxetine (ineffective), prazosin, olanzapine (worsened depression), aripiprazole (worsened depression) Current/previous therapies: Not currently following up with therapy - followed up with therapy previously, been years Examination as documented - see pertinent aspects of office visit documentation. Pertinent diagnostics: LABS MONITORED BY PCP Differential diagnoses: RECOMMENDATIONS: INCREASE quetiapine as prescribed to assist with mood/stability - educated patient/guardian on adverse effects, risks and benefits, as well as alternative treatments Continue medications as prescribed - educated patient/guardian on adverse effects, risks and benefits, as well as alternative treatments Consume well balanced diet, preferably low in saturated fats (solid at room temperature, such as butter, margarine, Crisco, etc) and low in sodium (<2,000mg per day). Consume plenty of fruits/vegetables , healthy grains/whole grains, unsaturated/healt hy fats (liquid at room temperature, such as olive oil, sunflower seed oil, canola, vegetable, etc.). Exercise regularly - Develop an exercise routine. 30 minutes of moderate exercise (walking at a brisk pace) 5 times per week is recommended. You should work hard enough to cause a sweat but still be able to talk with others while exercising. Exercise improves overall health - improves blood pressure and blood sugar, helps control weight, reduces stress, and improves mood. Practice stress reduction techniques, such as guided imagery, journaling, aromatherapy, acupuncture/acupr essure, deep breathing, etc. Practice healthy sleep hygiene - maintain regular routine, no caffeine after 1PM, no exercise 1-2 hours prior to bedtime, keep bedroom dark and cool, no TV or electronics while in bed. Consider melatonin as needed. Consider cognitive behavioral therapy for insomnia (CBT-I). Consider/Continue therapy. Consider/Continue substance cessation therapy as needed - contact office if desiring medication assisted therapy. Manage co-morbid conditions. Continue monitoring symptoms - report persistent or worsening/concern ing symptoms to the office or go to the ER. For mental health CRISIS, please reach out to [phone] (National Suicide and Crisis Lifeline), 911, go to the emergency department, or contact the [facility] Crisis Unit/Team. Follow up as scheduled in 2 weeks or sooner if necessary. Follow up with PCP and/or other specialists as advised. NEXT STEP: Consider increasing quetiapine ER pending response/tolerabi lity. Consider increasing trazodone as needed. Consider adding other mood stabilizing agent such as lamotrigine. 02/05/2025 Bipolar 1 disorder (ICD-10 - F31.9) Duration (acute/chronic), stability (controlled/uncon trolled): Chronic, improved with recent medication adjustments, patient doesn't feel further medication adjustments are required at this time, see HPI Current medications/effic acy: Yes Previous medication trials: fluoxetine (ineffective), paroxetine (ineffective), prazosin, olanzapine (worsened depression), aripiprazole (worsened depression) Current/previous therapies: Not currently following up with therapy - followed up with therapy previously, been years Examination as documented - see pertinent aspects of office visit documentation. Pertinent diagnostics: LABS MONITORED BY PCP - ALSO AGREEABLE TO THIS PROVIDER ORDERING REPEAT SET OF GENERAL LABS Differential diagnoses: RECOMMENDATIONS: Continue medications as prescribed - educated patient/guardian on adverse effects, risks and benefits, as well as alternative treatments Consume well balanced diet, preferably low in saturated fats (solid at room temperature, such as butter, margarine, Crisco, etc) and low in sodium (<2,000mg per day). Consume plenty of fruits/vegetables , healthy grains/whole grains, unsaturated/healt hy fats (liquid at room temperature, such as olive oil, sunflower seed oil, canola, vegetable, etc.). Exercise regularly - Develop an exercise routine. 30 minutes of moderate exercise (walking at a brisk pace) 5 times per week is recommended. You should work hard enough to cause a sweat but still be able to talk with others while exercising. Exercise improves overall health - improves blood pressure and blood sugar, helps control weight, reduces stress, and improves mood. Practice stress reduction techniques, such as guided imagery, journaling, aromatherapy, acupuncture/acupr essure, deep breathing, etc. Practice healthy sleep hygiene - maintain regular routine, no caffeine after 1PM, no exercise 1-2 hours prior to bedtime, keep bedroom dark and cool, no TV or electronics while in bed. Consider melatonin as needed. Consider cognitive behavioral therapy for insomnia (CBT-I). Consider/Continue therapy. Consider/Continue substance cessation therapy as needed - contact office if desiring medication assisted therapy. Manage co-morbid conditions. Continue monitoring symptoms - report persistent or worsening/concern ing symptoms to the office or go to the ER. For mental health CRISIS, please reach out to [phone] (National Suicide and Crisis Lifeline), 911, go to the emergency department, or contact the [facility] Crisis Unit/Team. Follow up as scheduled in 4 weeks or sooner if necessary. Follow up with PCP and/or other specialists as advised. NEXT STEP: Consider increasing quetiapine ER pending response/tolerabi lity. Consider increasing trazodone as needed. Consider adding other mood stabilizing agent such as lamotrigine. 03/24/2025 Bipolar 1 disorder (ICD-10 - F31.9) Duration (acute/chronic), stability (controlled/uncon trolled): Chronic, patient recently hospitalized due to lapse in medication adherence secondary to financial constraints, see HPI Current medications/effic acy: Somewhat, room for improvement Previous medication trials: fluoxetine (ineffective), paroxetine (ineffective), prazosin, olanzapine (worsened depression), aripiprazole (worsened depression) Current/previous therapies: Not currently following up with therapy - followed up with therapy previously, been years Examination as documented - see pertinent aspects of office visit documentation. Pertinent diagnostics: LABS MONITORED BY PCP - LABS ALSO ORDERED BY THIS PROVIDER IN 01/2025, NOT YET COLLECTED Differential diagnoses: RECOMMENDATIONS: ADD low dose quetiapine in the AM as prescribed/discus sed to assist with daytime mood/stability/an xiety - educated patient/guardian on adverse effects, risks and benefits, as well as alternative treatments Continue other medications as prescribed - educated patient/guardian on adverse effects, risks and benefits, as well as alternative treatments Consume well balanced diet, preferably low in saturated fats (solid at room temperature, such as butter, margarine, Crisco, etc) and low in sodium (<2,000mg per day). Consume plenty of fruits/vegetables , healthy grains/whole grains, unsaturated/healt hy fats (liquid at room temperature, such as olive oil, sunflower seed oil, canola, vegetable, etc.). Exercise regularly - Develop an exercise routine. 30 minutes of moderate exercise (walking at a brisk pace) 5 times per week is recommended. You should work hard enough to cause a sweat but still be able to talk with others while exercising. Exercise improves overall health - improves blood pressure and blood sugar, helps control weight, reduces stress, and improves mood. Practice stress reduction techniques, such as guided imagery, journaling, aromatherapy, acupuncture/acupr essure, deep breathing, etc. Practice healthy sleep hygiene - maintain regular routine, no caffeine after 1PM, no exercise 1-2 hours prior to bedtime, keep bedroom dark and cool, no TV or electronics while in bed. Consider melatonin as needed. Consider cognitive behavioral therapy for insomnia (CBT-I). Consider/Continue therapy. Consider/Continue substance cessation therapy as needed - contact office if desiring medication assisted therapy. Manage co-morbid conditions. Continue monitoring symptoms - report persistent or worsening/concern ing symptoms to the office or go to the ER. For mental health CRISIS, please reach out to [phone] ([employer] [facility]icide and Crisis Lif[facility]), 911, go to the emergency department, or contact the [facility] Crisis Unit/Team. Follow up as scheduled in 2-3 weeks or sooner if necessary. Follow up with PCP and/or other specialists as advised. NEXT STEP: Consider medication adjustments as needed. 04/16/2025 Bipolar 1 disorder (ICD-10 - F31.9) Duration (acute/chronic), stability (controlled/uncon trolled): Chronic, improved from previous appointment, see HPI Current medications/effic acy: Yes Previous medication trials: fluoxetine (ineffective), paroxetine (ineffective), prazosin, olanzapine (worsened depression), aripiprazole (worsened depression) Current/previous therapies: Not currently following up with therapy - followed up with therapy previously, been years Examination as documented - see pertinent aspects of office visit documentation. Pertinent diagnostics: LABS MONITORED BY PCP - Labs collected at [facility] near the end of , looked good Differential diagnoses: RECOMMENDATIONS: Continue medications as prescribed - educated patient/guardian on adverse effects, risks and benefits, as well as alternative treatments Consume well balanced diet, preferably low in saturated fats (solid at room temperature, such as butter, margarine, Crisco, etc) and low in sodium (<2,000mg per day). Consume plenty of fruits/vegetables , healthy grains/whole grains, unsaturated/healt hy fats (liquid at room temperature, such as olive oil, sunflower seed oil, canola, vegetable, etc.). Exercise regularly - Develop an exercise routine. 30 minutes of moderate exercise (walking at a brisk pace) 5 times per week is recommended. You should work hard enough to cause a sweat but still be able to talk with others while exercising. Exercise improves overall health - improves blood pressure and blood sugar, helps control weight, reduces stress, and improves mood. Practice stress reduction techniques, such as guided imagery, journaling, aromatherapy, acupuncture/acupr essure, deep breathing, etc. Practice healthy sleep hygiene - maintain regular routine, no caffeine after 1PM, no exercise 1-2 hours prior to bedtime, keep bedroom dark and cool, no TV or electronics while in bed. Consider melatonin as needed. Consider cognitive behavioral therapy for insomnia (CBT-I). Consider/Continue therapy. Consider/Continue substance cessation therapy as needed - contact office if desiring medication assisted therapy. Manage co-morbid conditions. Continue monitoring symptoms - report persistent or worsening/concern ing symptoms to the office or go to the ER. For mental health CRISIS, please reach out to [phone] ([employer] [facility]icide and Crisis [facility]), 911, go to the emergency department, or contact the [facility] Crisis Unit/Team. Follow up as scheduled in 4 weeks or sooner if necessary. Follow up with PCP and/or other specialists as advised. NEXT STEP: Consider medication adjustments as needed. 05/14/2025 Bipolar 1 disorder (ICD-10 - F31.9) 05/26/2025 Bipolar 1 disorder (ICD-10 - F31.9) 05/26/2025 DEBORAH (generalized anxiety disorder) (ICD-10 - F41.1) See assessment and plan for bipolar 1 disorder 06/15/2025 DEBORAH (generalized anxiety disorder) (ICD-10 - F41.1) 05/26/2025 PTSD (post-traumatic stress disorder) (ICD-10 - F43.10) See assessment and plan for bipolar I disorder 04/16/2025 DEBORAH (generalized anxiety disorder) (ICD-10 - F41.1) See assessment and plan for bipolar 1 disorder 03/24/2025 DEBORAH (generalized anxiety disorder) (ICD-10 - F41.1) See assessment and plan for bipolar 1 disorder 02/05/2025 DEBORAH (generalized anxiety disorder) (ICD-10 - F41.1) See assessment and plan for bipolar 1 disorder 12/03/2024 DEBORAH (generalized anxiety disorder) (ICD-10 - F41.1) See assessment and plan for bipolar 1 disorder 01/07/2025 DEBORAH (generalized anxiety disorder) (ICD-10 - F41.1) See assessment and plan for bipolar 1 disorder 09/04/2024 PTSD (post-traumatic stress disorder) (ICD-10 - F43.10) Duration (acute/chronic), stability (controlled/uncon trolled): Chronic, most well controlled on current medication regimen, room for improvement Current medications/effic acy: Somewhat, room for improvement Previous medication trials: fluoxetine (ineffective), paroxetine (ineffective) Current/previous therapies: Not currently following up with therapy - followed up with therapy previously, been years Examination as documented - see pertinent aspects of office visit documentation. Pertinent diagnostics: LABS MONITORED BY PCP Differential diagnoses: RECOMMENDATIONS: INCREASE quetiapine as prescribed and switch to ER formulation, STOP immediate release formulation as currently prescribed - educated patient/guardian on adverse effects, risks and benefits, as well as alternative treatments INCREASE hydroxyzine to 75-100mg in the AM, 50mg in the afternoon, and 50mg in the PM - educated patient/guardian on adverse effects, risks and benefits, as well as alternative treatments INCREASE trazodone as prescribed - educated patient/guardian on adverse effects, risks and benefits, as well as alternative treatments Continue other medications as prescribed - educated patient/guardian on adverse effects, risks and benefits, as well as alternative treatments Consume well balanced diet, preferably low in saturated fats (solid at room temperature, such as butter, margarine, Crisco, etc) and low in sodium (<2,000mg per day). Consume plenty of fruits/vegetables , healthy grains/whole grains, unsaturated/healt hy fats (liquid at room temperature, such as olive oil, sunflower seed oil, canola, vegetable, etc.). Exercise regularly - Develop an exercise routine. 30 minutes of moderate exercise (walking at a brisk pace) 5 times per week is recommended. You should work hard enough to cause a sweat but still be able to talk with others while exercising. Exercise improves overall health - improves blood pressure and blood sugar, helps control weight, reduces stress, and improves mood. Practice stress reduction techniques, such as guided imagery, journaling, aromatherapy, acupuncture/acupr essure, deep breathing, etc. Practice healthy sleep hygiene - maintain regular routine, no caffeine after 1PM, no exercise 1-2 hours prior to bedtime, keep bedroom dark and cool, no TV or electronics while in bed. Consider melatonin as needed. Consider cognitive behavioral therapy for insomnia (CBT-I). Consider/Continue therapy. Consider/Continue substance cessation therapy as needed - contact office if desiring medication assisted therapy. Manage co-morbid conditions. Continue monitoring symptoms - report persistent or worsening/concern ing symptoms to the office or go to the ER. For mental health CRISIS, please reach out to [phone] ([place] [facility]), 911, go to the emergency department, or contact the [facility] Crisis Unit/Team. Follow up as scheduled in 4 weeks or sooner if necessary. Follow up with PCP and/or other specialists as advised. NEXT STEP: Consider increasing quetiapine ER pending response/tolerabi lity. Consider increasing trazodone as needed. Consider adding other mood stabilizing agent such as lamotrigine. Consider adding alpha ann such as prazosin to assist with flashbacks if improvement in mood/anxiety alone is ineffective in improving symptoms. 09/04/2024 Nicotine dependence (ICD-10 - F17.200) Duration (acute/chronic), stability (controlled/uncon trolled): Chronic, Smokes cigarettes, has been smoking since about 14, smokes about 8 cigarettes daily - patient verablizes no intention to quit at this time Current medications/effic acy: N/A Previous medication trials: N/A RECOMMENDATIONS: Consider substance cessation therapy as needed - contact office if desiring medication assisted therapy. Manage co-morbid conditions. Continue monitoring symptoms - report persistent or worsening/concern ing symptoms to the office or go to the ER. For mental health CRISIS, please reach out to [phone] ([place] [facility]), 911, go to the emergency department, or contact the [facility] Crisis Unit/Team. Follow up as scheduled or sooner if necessary. Follow up with PCP and/or other specialists as advised. NEXT STEP: Consider MAT as needed. 12/03/2024 PTSD (post-traumatic stress disorder) (ICD-10 - F43.10) Duration (acute/chronic), stability (controlled/uncon trolled): Chronic, well controlled with recent medication adjustments, although patient recently hospitalized after abruptly stopping medications, see HPI Current medications/effic acy: Yes Previous medication trials: fluoxetine (ineffective), paroxetine (ineffective) Current/previous therapies: Not currently following up with therapy - followed up with therapy previously, been years Examination as documented - see pertinent aspects of office visit documentation. Pertinent diagnostics: LABS MONITORED BY PCP Differential diagnoses: RECOMMENDATIONS: Continue medications as prescribed - educated patient/guardian on adverse effects, risks and benefits, as well as alternative treatments Consume well balanced diet, preferably low in saturated fats (solid at room temperature, such as butter, margarine, Crisco, etc) and low in sodium (<2,000mg per day). Consume plenty of fruits/vegetables , healthy grains/whole grains, unsaturated/healt hy fats (liquid at room temperature, such as olive oil, sunflower seed oil, canola, vegetable, etc.). Exercise regularly - Develop an exercise routine. 30 minutes of moderate exercise (walking at a brisk pace) 5 times per week is recommended. You should work hard enough to cause a sweat but still be able to talk with others while exercising. Exercise improves overall health - improves blood pressure and blood sugar, helps control weight, reduces stress, and improves mood. Practice stress reduction techniques, such as guided imagery, journaling, aromatherapy, acupuncture/acupr essure, deep breathing, etc. Practice healthy sleep hygiene - maintain regular routine, no caffeine after 1PM, no exercise 1-2 hours prior to bedtime, keep bedroom dark and cool, no TV or electronics while in bed. Consider melatonin as needed. Consider cognitive behavioral therapy for insomnia (CBT-I). Consider/Continue therapy. Consider/Continue substance cessation therapy as needed - contact office if desiring medication assisted therapy. Manage co-morbid conditions. Continue monitoring symptoms - report persistent or worsening/concern ing symptoms to the office or go to the ER. For mental health CRISIS, please reach out to [phone] ([facility]), 911, go to the emergency department, or contact the [facility] Crisis Unit/Team. Follow up as scheduled in 4 weeks or sooner if necessary. Follow up with PCP and/or other specialists as advised. NEXT STEP: Consider increasing quetiapine ER pending response/tolerabi lity. Consider increasing trazodone as needed. Consider adding other mood stabilizing agent such as lamotrigine. Consider adding alpha ann such as prazosin to assist with flashbacks if improvement in mood/anxiety alone is ineffective in improving symptoms. 01/07/2025 PTSD (post-traumatic stress disorder) (ICD-10 - F43.10) See assessment and plan for bipolar I disorder 02/05/2025 PTSD (post-traumatic stress disorder) (ICD-10 - F43.10) See assessment and plan for bipolar I disorder 03/24/2025 PTSD (post-traumatic stress disorder) (ICD-10 - F43.10) See assessment and plan for bipolar I disorder 04/16/2025 PTSD (post-traumatic stress disorder) (ICD-10 - F43.10) See assessment and plan for bipolar I disorder 05/26/2025 Nicotine dependence (ICD-10 - F17.200) Duration (acute/chronic), stability (controlled/uncon trolled): Chronic, Smokes cigarettes, has been smoking since about 14, smokes about 3 cigarettes daily Current medications/effic acy: N/A Previous medication trials: N/A RECOMMENDATIONS: Consider substance cessation therapy as needed - contact office if desiring medication assisted therapy. Manage co-morbid conditions. Continue monitoring symptoms - report persistent or worsening/concern ing symptoms to the office or go to the ER. For mental health CRISIS, please reach out to [phone] ([place] [facility]), 911, go to the emergency department, or contact the [facility] Crisis Unit/Team. Follow up as scheduled or sooner if necessary. Follow up with PCP and/or other specialists as advised. NEXT STEP: Consider MAT as needed. 05/26/2025 Cannabis dependence (ICD-10 - F12.20) Duration (acute/chronic), stability (controlled/uncon trolled): Chronic, No longer smokes marijuana, consuming edibles daily Current medications/effic acy: N/A Previous medication trials: N/A RECOMMENDATIONS: Consider substance cessation therapy as needed - contact office if desiring medication assisted therapy. Manage co-morbid conditions. Continue monitoring symptoms - report persistent or worsening/concern ing symptoms to the office or go to the ER. For mental health CRISIS, please reach out to [phone] ([employer] [place] [facility]), 911, go to the emergency department, or contact the [facility] Crisis Unit/Team. Follow up as scheduled or sooner if necessary. Follow up with PCP and/or other specialists as advised. NEXT STEP: Consider MAT as needed. 04/16/2025 Nicotine dependence (ICD-10 - F17.200) Duration (acute/chronic), stability (controlled/uncon trolled): Chronic, Smokes cigarettes, has been smoking since about 14, smokes about 3 cigarettes daily Current medications/effic acy: N/A Previous medication trials: N/A RECOMMENDATIONS: Consider substance cessation therapy as needed - contact office if desiring medication assisted therapy. Manage co-morbid conditions. Continue monitoring symptoms - report persistent or worsening/concern ing symptoms to the office or go to the ER. For mental health CRISIS, please reach out to [phone] ([facility]), 911, go to the emergency department, or contact the [facility] Unit/Team. Follow up as scheduled or sooner if necessary. Follow up with PCP and/or other specialists as advised. NEXT STEP: Consider MAT as needed. 02/05/2025 Nicotine dependence (ICD-10 - F17.200) Duration (acute/chronic), stability (controlled/uncon trolled): Chronic, Smokes cigarettes, has been smoking since about 14, smokes about 8 cigarettes daily - patient verablizes no intention to quit at this time Current medications/effic acy: N/A Previous medication trials: N/A RECOMMENDATIONS: Consider substance cessation therapy as needed - contact office if desiring medication assisted therapy. Manage co-morbid conditions. Continue monitoring symptoms - report persistent or worsening/concern ing symptoms to the office or go to the ER. For mental health CRISIS, please reach out to [phone] ([facility]), 911, go to the emergency department, or contact the [facility] Unit/Team. Follow up as scheduled or sooner if necessary. Follow up with PCP and/or other specialists as advised. NEXT STEP: Consider MAT as needed. 03/24/2025 Nicotine dependence (ICD-10 - F17.200) Duration (acute/chronic), stability (controlled/uncon trolled): Chronic, Smokes cigarettes, has been smoking since about 14, smokes about 8 cigarettes daily - patient verablizes no intention to quit at this time Current medications/effic acy: N/A Previous medication trials: N/A RECOMMENDATIONS: Consider substance cessation therapy as needed - contact office if desiring medication assisted therapy. Manage co-morbid conditions. Continue monitoring symptoms - report persistent or worsening/concern ing symptoms to the office or go to the ER. For mental health CRISIS, please reach out to 988 ([facility]), 911, go to the emergency department, or contact the [facility] Unit/Team. Follow up as scheduled or sooner if necessary. Follow up with PCP and/or other specialists as advised. NEXT STEP: Consider MAT as needed. 01/07/2025 Nicotine dependence (ICD-10 - F17.200) Duration (acute/chronic), stability (controlled/uncon trolled): Chronic, Smokes cigarettes, has been smoking since about 14, smokes about 8 cigarettes daily - patient verablizes no intention to quit at this time Current medications/effic acy: N/A Previous medication trials: N/A RECOMMENDATIONS: Consider substance cessation therapy as needed - contact office if desiring medication assisted therapy. Manage co-morbid conditions. Continue monitoring symptoms - report persistent or worsening/concern ing symptoms to the office or go to the ER. For mental health CRISIS, please reach out to 988 ([place] [facility]), 911, go to the emergency department, or contact the [facility] Unit/Team. Follow up as scheduled or sooner if necessary. Follow up with PCP and/or other specialists as advised. NEXT STEP: Consider MAT as needed. 12/03/2024 Nicotine dependence (ICD-10 - F17.200) Duration (acute/chronic), stability (controlled/uncon trolled): Chronic, Smokes cigarettes, has been smoking since about 14, smokes about 8 cigarettes daily - patient verablizes no intention to quit at this time Current medications/effic acy: N/A Previous medication trials: N/A RECOMMENDATIONS: Consider substance cessation therapy as needed - contact office if desiring medication assisted therapy. Manage co-morbid conditions. Continue monitoring symptoms - report persistent or worsening/concern ing symptoms to the office or go to the ER. For mental health CRISIS, please reach out to [phone] ([place] [facility]), 911, go to the emergency department, or contact the [facility]/Team. Follow up as scheduled or sooner if necessary. Follow up with PCP and/or other specialists as advised. NEXT STEP: Consider MAT as needed. 09/04/2024 Cannabis dependence (ICD-10 - F12.20) Duration (acute/chronic), stability (controlled/uncon trolled): Chronic, Smokes daily, medical card - patient verablizes no intention to quit at this time Current medications/effic acy: N/A Previous medication trials: N/A RECOMMENDATIONS: Consider substance cessation therapy as needed - contact office if desiring medication assisted therapy. Manage co-morbid conditions. Continue monitoring symptoms - report persistent or worsening/concern ing symptoms to the office or go to the ER. For mental health CRISIS, please reach out to [phone] ([facility]), 911, go to the emergency department, or contact the [facility]/Team. Follow up as scheduled or sooner if necessary. Follow up with PCP and/or other specialists as advised. NEXT STEP: Consider MAT as needed. 12/03/2024 Cannabis dependence (ICD-10 - F12.20) Duration (acute/chronic), stability (controlled/uncon trolled): Chronic, Smokes daily, medical card - patient verablizes no intention to quit at this time Current medications/effic acy: N/A Previous medication trials: N/A RECOMMENDATIONS: Consider substance cessation therapy as needed - contact office if desiring medication assisted therapy. Manage co-morbid conditions. Continue monitoring symptoms - report persistent or worsening/concern ing symptoms to the office or go to the ER. For mental health CRISIS, please reach out to [phone] ([facility]), 911, go to the emergency department, or contact the [facility]/Team. Follow up as scheduled or sooner if necessary. Follow up with PCP and/or other specialists as advised. NEXT STEP: Consider MAT as needed. 01/07/2025 Cannabis dependence (ICD-10 - F12.20) Duration (acute/chronic), stability (controlled/uncon trolled): Chronic, Smokes daily, medical card - patient verablizes no intention to quit at this time Current medications/effic acy: N/A Previous medication trials: N/A RECOMMENDATIONS: Consider substance cessation therapy as needed - contact office if desiring medication assisted therapy. Manage co-morbid conditions. Continue monitoring symptoms - report persistent or worsening/concern ing symptoms to the office or go to the ER. For mental health CRISIS, please reach out to [phone] ([facility]), 911, go to the emergency department, or contact the [facility]/Team. Follow up as scheduled or sooner if necessary. Follow up with PCP and/or other specialists as advised. NEXT STEP: Consider MAT as needed. 03/24/2025 Cannabis dependence (ICD-10 - F12.20) Duration (acute/chronic), stability (controlled/uncon trolled): Chronic, Smokes daily, medical card - patient verablizes no intention to quit at this time Current medications/effic acy: N/A Previous medication trials: N/A RECOMMENDATIONS: Consider substance cessation therapy as needed - contact office if desiring medication assisted therapy. Manage co-morbid conditions. Continue monitoring symptoms - report persistent or worsening/concern ing symptoms to the office or go to the ER. For mental health CRISIS, please reach out to [phone] ([place] [facility]), 911, go to the emergency department, or contact the [facility] Unit/Team. Follow up as scheduled or sooner if necessary. Follow up with PCP and/or other specialists as advised. NEXT STEP: Consider MAT as needed. 02/05/2025 Cannabis dependence (ICD-10 - F12.20) Duration (acute/chronic), stability (controlled/uncon trolled): Chronic, Smokes daily, medical card - patient verablizes no intention to quit at this time Current medications/effic acy: N/A Previous medication trials: N/A RECOMMENDATIONS: Consider substance cessation therapy as needed - contact office if desiring medication assisted therapy. Manage co-morbid conditions. Continue monitoring symptoms - report persistent or worsening/concern ing symptoms to the office or go to the ER. For mental health CRISIS, please reach out to [phone] ([place] [facility]), 911, go to the emergency department, or contact the [facility]/Team. Follow up as scheduled or sooner if necessary. Follow up with PCP and/or other specialists as advised. NEXT STEP: Consider MAT as needed. 04/16/2025 Cannabis dependence (ICD-10 - F12.20) Duration (acute/chronic), stability (controlled/uncon trolled): Chronic, No longer smokes marijuana, consuming edibles daily Current medications/effic acy: N/A Previous medication trials: N/A RECOMMENDATIONS: Consider substance cessation therapy as needed - contact office if desiring medication assisted therapy. Manage co-morbid conditions. Continue monitoring symptoms - report persistent or worsening/concern ing symptoms to the office or go to the ER. For mental health CRISIS, please reach out to 988 ([place] [facility]), 911, go to the emergency department, or contact the [facility] Unit/Team. Follow up as scheduled or sooner if necessary. Follow up with PCP and/or other specialists as advised. NEXT STEP: Consider MAT as needed. Plan Of Treatment Future Test Test Name Order Date Test, Urine 02/06/2023 12 Panel Urine Drug Screen 02/06/2023 Insurance Providers Payer Name Payer Address Payer Phone Subscriber Number Group Number Insured Name Patient Relationship to Insured Coverage Start Date Coverage End Date MEDICAID [address] [place] [phone] [id number] Smita Kat Self - patient is the insured 4 [facility] [address] [address] [place] [address] [id number] Zeyad Katanda Self - patient is the insured 4 Medical (General) History Medical History History ICD Code PTSD Panic disorder Bipolar Disorder I schizophrenia/schizoaffective disorder d iagnosed in hospital March 2021 Surgical History Surgery Date(Month/Year) 11/2009 10/2013 Hospitalization History Reason Date(Month/Year) [facility] - depression/SI May 2024 hallucations and paranoia March 2021 SI- [facility] June 2020 hospitalized x3 times April 2020 nazario 2011 first mental health hospitalization for intoxication and depression age 11
--- NOTE | 2025-07-29 06:39 | WPDHPUPDATE1 ---
History and Physical Update Update Date/Time: 07/29/25 06:39 Patient seen and examined in pre-operative holding area. No interval change in medical history or symptoms. Patient recalls previous discussion of benefits and alternatives to procedure. Continues to desire to proceed with left endoscopic possible open carpal tunnel release . Reviewed procedure, post-op expectations and risks including but not limited to bleeding, infection, injury to tendon/nerve/vessel, decreased hand function, stiffness, RSD, no change or worsening of symptoms. I discussed the possible use of assistants and their participation in the case. Patient stated understanding and signed the consent form wishing to proceed.
--- NOTE | 2025-07-29 06:39 | W.PM.PROC2 ---
Procedure Note - Detailed Date of Procedure 07/29/25 Pre-op Diagnosis left carpal tunnel syndrome Post-op Diagnosis Same Procedure Performed left ectr Surgeon Ankita Michel MD Anesthesia MAC Description of Procedure INFORMED CONSENT: The patient was seen and examined and marked in the pre-op area.? The patient signed the consent form. PROCEDURE IN DETAIL:The patient taken back to OR on the stretcher in supine position. Time out performed with anesthesia, surgeon and staff agreeing on patient's name site and surgery to be performed SCDs were placed on the lower extremities and inflated. A tourniquet was placed on {left} upper extremity and antibiotics given IV After anesthesia administered sedation I injected {5}cc 1%lido with epi and 0.5% marcaine plain at the operative site The?{left upper extremity}?was prepped and draped in sterile fashion the??{left upper extremity} was? exsanguinated with Esmarch bandage and tourniquet inflated to 250mmHg I made a transverse incision in the {left} volar distal wrist crease through skin and dermis with 15 blade scalpel.? Littler scissors spread down to antebrachial fascia. A small incision was made in antebrachial fascia allowing access to Carpal tunnel. I proceeded with sequential dilation staying in line with the ring finger and hugging the hook of the hamate.? I then used the synovial elevator to free any adhesions from the underside of the transverse carpal ligament. Next I was able to insert the Microaire endoscopic carpal tunnel device with direct visualization of the transverse fibers on the monitor and proceeded with complete segmental retrograde release of the ligament in its entirety.? I irrigated with normal saline and closed with 4-0 monocryl for dermis and subcuticular closure. A dressing of Dermabond, 4x4, ruthann, and a volar splint was applied for patient safety, security, and comfort and secured with an melody bandage after the tourniquet was let down noting the hand was warm and well perfused. The patient was then awaken from anesthesia and transferred to the recovery room in stable condition.? Complications - none EBL- 0cc Disposition - home in stable condition AM Billing Surgery - Charge Forward: Surgery Billing ([id number])
--- NOTE | 2025-07-29 06:46 | WPDANESEPPF ---
Anes - Initial Pre Proc Eval Procedure: Operation Date: 07/29/25 07:30 Proposed Procedures p Left Endoscopic Carpal Tunnel Release, Possible Open, - Ankita Michel MD Date/Time: 07/29/25 06:46 Surgeon: Ankita Michel MD Pre Op Diagnosis: left carpal tunnel syndrome Patient Data Age: 34 Gender: F Height: 1.52 m Weight: 80 kg Allergies Allergy/AdvReac Type Severity Reaction Status Date / Time risperidone Allergy Unknown Swelling Verified 07/29/25 06:52 of Lip/Tongue/Throat ANTIPSYCHOTICS Allergy Unknown Siezure Uncoded 07/22/25 09:43 Home Medications ?Medication ?Instructions ?Recorded ?Confirmed ?Type bupropion HCl 300 mg 24 hr tablet, 300 mg PO DIRECTED 01/10/24 07/29/25 History extended release hydroxyzine pamoate 50 mg capsule 50 mg PO DAILY 01/10/24 07/21/25 History trazodone 50 mg tablet 50 mg PO DIRECTED PRN 01/10/24 07/21/25 History SLEEPLESSNESS quetiapine 100 mg tablet 300 mg PO QHS 04/21/25 07/21/25 History quetiapine 25 mg tablet 50 mg PO .am 04/21/25 07/21/25 History varenicline tartrate 0.5 mg (11)-1 See Rx Instructions PO PER PKG DIR 05/25/25 07/21/25 Rx mg (42) tablets in a dose pack #53 ea (Chantix Starting Month Box) Patient hx anesthesia problems: none Family hx anesthesia problems: none Results Review: All pre-operative results and documents have been reviewed as part of the pre-operative evaluation. [facility] Past Medical History Medical History Anxiety Depression Bipolar disorder HLD (hyperlipidemia) Surgical History Surgical History Hx of section Social History Social History (Updated 07/22/25 @ 09:44 by Patsy Chou) Social History: Caffeine-occasionally Smoking packs per day: 1 Smoking cigarettes per day: 20.0 Years smoked: 20 Smoking pack-years: 20.00 Smoking status: Former smoker Tobacco type: cigarettes Additional smoking assessment comments: QUIT 2 WEEKS AGO Alcohol intake: never Substance use: current Substance use type: marijuana Other substance usage details: EDIBLE DAILY, QUIT MARIJUANA 6 MONTHS AGO Last use: 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 Living arrangements: with family Gender identity (if verbalized by the patient): Female Anes - [employer] Final PreProcedure Day of Procedure 07/29/25 06:46 Patient weight: obese Heart: regular rate and rhythm Lungs: clear to auscultation Airway: Mallampati scale class II Neurological: alert and oriented Last oral intake: >/= 8 hours ASA classification: III Emergent: no Anesthetic plan: proceed Anesthesia type and monitoring: general GIVS and standard monitoring Results Review: All pre-operative results and documents have been reviewed as part of the pre-operative evaluation. Informed Consent: The patient's anesthetic plan and its attendant risks and benefits were discussed with the patient/family/POA. Questions were solicited and answers provided to the satisfaction of the patient/family/POA.
[2025-07-29 06:53] VITALS: BP 109/70; PULSE 44; TEMP 36.2; O2SAT 97; BMI 35.6
[2025-07-29] MEDS: LACTATED RINGERS 1,000 ML 30 ML IV CONT (06:59)
[2025-07-29] MEDS: ACETAMINOPHEN 500 MG TABLET 1000 MG PO (07:00)
[2025-07-29 07:01] LABS: BEDSIDEPREGUCG Negative (Negative)
[2025-07-29] MEDS: ceFAZolin 2 GM in SODIUM CHLORIDE 0.9% IV 50 ML 100 ML IVPB (07:33)
[2025-07-29] MEDS: BUPivacaine HCL 0.5% 10 ML AMP 5 ML INFILTRATE (07:43)
[2025-07-29] MEDS: LIDO 1%/EPINEPHRINE 1:100,000 50 ML VIAL INFILTRATE (07:43)
[2025-07-29 07:57] VITALS: BP 103/71; PULSE 59; RESP 14; O2SAT 99
[2025-07-29] MEDS: oxyCODONE HCL (*CRX) 5 MG TAB IR PO (08:15)
[2025-07-29 08:27] VITALS: BP 97/71; PULSE 73
[2025-07-29 08:52] VITALS: BP 108/64; PULSE 53
== END 2025-07-29 08:57 | disposition home or self-care (01) ==
PROVIDERS: PCP Nurse Practitioner Family; Visit Provider Plastic Surgery
PROC: 01N54ZZ Release Median Nerve, Percutaneous Endoscopic Approach (ICD-10-PCS; CPT 29848; principal; 2025-07-29 07:30)
DX: G56.02 Carpal tunnel syndrome, left upper limb (principal)
CPT/HCPCS: 29848; J0690; A9270; J1100; J2003; J2004; J2250; J2405; J2704; J3010; J7120